=== PATIENT | male | born 1940 | race Hispanic/Latino ===

== ENCOUNTER 2018-04-15 14:52 | Emergency (ER) | payer MEDICARE ==
[~2018-04-15] VITALS: Ht 165.1 cm; Wt 83.9 kg
[2018-04-15] MEDS ORDERED: DIPHTH/TETANUS/ACEL. PERTUSSIS 0.5 ML SYR IM ONE (15:15)
[2018-04-15] MEDS ORDERED: PANTOPRAZOLE SO40 MG PO (15:32)
[2018-04-15] MEDS ORDERED: ASPIR-LOW81 MG PO (15:32)
[2018-04-15] MEDS ORDERED: LISINOPRIL10 MG PO (15:32)
[2018-04-15] MEDS ORDERED: VERAPAMIL ER120 MG PO (15:32)
--- NOTE | 2018-04-15 15:55 | Diagnostic Imaging Report ---
Exam: Left Hand Series. History: Laceration to the left thumb. Comparison: None. Findings: 4 views of the left hand. There is decreased bone mineralization. Dislocation of the first finger at the interphalangeal joint, with dorsal displacement of the distal phalanx. No definite acute, displaced fracture. Moderate degenerative changes in the first carpometacarpal joint. Other joint spaces are relatively preserved. No lytic or blastic lesion. No abnormal soft tissue calcification or mass. No cystic erosive changes.Soft tissue swelling in the first finger. No soft tissue defect is noted. Impression: 1. Dislocation of the first finger and the interphalangeal joint, with dorsal displacement of the distal phalanx. No definite acute displaced fracture. No soft tissue defect is noted. 2. Findings in the first carpometacarpal joint likely reflect osteoarthritis. Signed by: Dr. Deep Barrera M.D. on 04/15/2018 3:52 PM
[2018-04-15] MEDS ORDERED: HYDROCODONE/APAP 5MG-325MG TAB PO ONE (16:00)
--- NOTE | 2018-04-15 16:39 | Diagnostic Imaging Report ---
Exam: Finger, AP and lateral view History: Status post reduction Comparison: Hand films 04/15/2018 Findings: There is decreased bone mineralization. Interval reduction of previously visualized dislocation of the first finger at the interphalangeal joint, with satisfactory alignment. There is an oblique linear lucency at the radial aspect of the base of the distal phalanx, likely representing a nondisplaced fracture. Moderate degenerative changes in the first carpometacarpal joint. No abnormal soft tissue calcification or soft tissue defect. Soft tissue swelling. Impression: 1. Interval reduction of previously visualized dislocation of the first finger and the interphalangeal joint, with satisfactory alignment. 2. Oblique linear lucency at the radial aspect of the base of the distal phalanx likely represents a nondisplaced fracture. Signed by: Dr. Depe Barrera M.D. on 04/15/2018 4:36 PM
== END 2018-04-15 17:16 | disposition home or self-care (01) ==
LOC: FSED 14:52
DX: S61.012A Laceration without foreign body of left thumb without damage to nail, initial encounter (principal); S63.125A Dislocation of interphalangeal joint of left thumb, initial encounter; W18.39XA Other fall on same level, initial encounter; Y92.89 Other specified places as the place of occurrence of the external cause; I10 Essential (primary) hypertension; F17.210 Nicotine dependence, cigarettes, uncomplicated
CPT/HCPCS: 99284

== ENCOUNTER 2019-02-26 14:27 | Emergency (ER) | payer MEDICARE ==
[~2019-02-26] VITALS: Ht 165.1 cm; Wt 77.1 kg
[~2019-02-26 14:27] MED LIST: ASPIR-LOW81 MG PO; LISINOPRIL10 MG PO; PANTOPRAZOLE SO40 MG PO; VERAPAMIL ER120 MG PO
--- OUTSIDE RECORDS SUMMARY | 2019-02-26 14:29 | XMS REPORT ---
Author Author [facility] Address Unknown Phone Unavailable Care Team Providers Care Scrape Gatherer Name Role Phone Jd DA SILVA Unavailable Unavailable Problems This patient has no known problems. Allergies, Adverse Reactions, Alerts This patient has no known allergies or adverse reactions. Medications This patient has no known medications. Results Test Description Test Time Test Comments Text Results Atomic Results Result Comments FINGER LT - HOPD 2018-04-15 16:27:00 [place] [address] Patient Name: ALEXI JOE MR #: [id number] : 1940 Age/Sex: 77/M Req #: [id number] [facility] Physician: Ordered by: SIA DA SILVA MD Report #: [id number] Location: [facility] Room/Bed: Procedure: [id number] HOPD/FINGER LT - HOPD Exam Date: 04/15/18 Exam Time: 1606 REPORT STATUS: Signed Exam: Finger, AP and lateral view History: Status post reduction Comparison: Hand films 04/15/2018 Findings: There is decreased bone mineralization. Interval reduction of previously visualized dislocation of the first finger at the interphalangeal joint, with satisfactory alignment. There is an oblique linear lucency at the radial aspect of the base of the distal phalanx, likely representing a nondisplaced fracture. Moderate degenerative changes in the first carpometacarpal joint. No abnormal soft tissue calcification or soft tissue defect. Soft tissue swelling. Impression: 1. Interval reduction of previously visualized dislocation of the first finger and the interphalangeal joint, with satisfactory alignment. 2. Oblique linear lucency at the radial aspect of the base of the distal phalanx likely represents a nondisplaced fracture. Signed by: Dr. Antonina Barrera M.D. on 04/15/2018 4:36 PM Dictated By: ANTONINA BARRERA MD 35 Transcribed By: JOSE on 04/15/181635 COPY TO: SIA DA SILVA MD HAND 3 VIEW [facility] 2018-04-15 15:49:00 [place] [address] Patient Name: ALEXI JOE MR #: [id number] : 1940 Age/Sex: 77/M Req #: [id number] Adm Physician: Ordered by: SIA DA SILVA MD Report #: [id number] Location: [facility] Room/Bed: Procedure: [id number] HOPD/HAND 3 VIEW - [facility] Exam Date: 04/15/18 Exam Time: 1538 REPORT STATUS: Signed Exam: Left Hand Series. History: Laceration to the left thumb. Comparison: None. Findings: 4 views of the left hand. There is decreased bone mineralization. Dislocation of the first finger at the interphalangeal joint, with dorsal displacement of the distal phalanx. No definite acute, displaced fracture. Moderate degenerative changes in the first carpometacarpal joint. Other joint spaces are relatively preserved. No lytic or blastic lesion. No abnormal soft tissue calcification or mass. No cystic erosive changes.Soft tissue swelling in the first finger. No soft tissue defect is noted. Impression: 1. Dislocation of the first finger and the interphalangeal joint, with dorsal displacement of the distal phalanx. No definite acute displaced fracture. No soft tissue defect is noted. 2. Findings in the first carpometacarpal joint likely reflect osteoarthritis. Signed by: Dr. Antonina Barrera M.D. on 04/15/2018 3:52 PM Dictated By: ANTONINA BARRERA MD 51 Transcribed By: JOSE on 04/15/181551 COPY TO: SIA DA SILVA MD
[2019-02-26] MEDS ORDERED: FAMOTIDINE 20 MG TAB PO ONE (14:45)
[2019-02-26] MEDS ORDERED: ONDANSETRON HCL 4 MG ORAL DISINTEGRATING TAB PO ONE (14:45)
[2019-02-26] MEDS ORDERED: SODIUM CHLORIDE 0.9% 1000ML 1,000 ML IV SCH (14:45)
[2019-02-26] MEDS ORDERED: ONDANSETRON HCL 4 MG ORAL DISINTEGRATING TAB ONE (15:24)
[2019-02-26] MEDS ORDERED: SODIUM CHLORIDE 0.9% 1000ML 1,000 ML ONE (15:25)
[2019-02-26] MEDS ORDERED: FAMOTIDINE 20 MG TAB ONE (15:25)
[2019-02-26] MEDS ORDERED: SODIUM CHLORIDE 0.9% 50ML 50 ML ONE (15:40)
[2019-02-26] MEDS ORDERED: IOPAMIDOL 370 MG/ML 200 ML INFUS..BTL INJ ONE (15:40)
--- NOTE | 2019-02-26 17:24 | Diagnostic Imaging Report ---
EXAM: CT Abdomen and Pelvis WITH contrast INDICATION: ^[id number] ^1550 COMPARISON: None. TECHNIQUE: Abdomen and pelvis were scanned utilizing a multidetector helical scanner from the lung base to the pubic symphysis after administration of IV contrast. Coronal and sagittal reformations were obtained. Routine protocol was performed. Scan was performed when during portal venous phase. IV CONTRAST: 100 mL of Isovue-370 ORAL CONTRAST: Water RADIATION DOSE: Total DLP: 743.7 mGy*cm Estimated effective dose: (DLP x 0.015 x size factor) mSv COMPLICATIONS: None FINDINGS: LINES and TUBES: None. LOWER THORAX: Moderate coronary artery calcifications. HEPATOBILIARY: No focal hepatic lesions. No biliary ductal dilation. GALLBLADDER: Multiple small gallstones. No wall thickening. SPLEEN: No splenomegaly. PANCREAS: 2.0 x 1.7 cm low-attenuation mass within the pancreatic head on series 2, image 32. There is severe atrophy of the pancreatic body and tail with associated diffuse dilatation of the pancreatic duct, measuring up to 0.8 cm in diameter. There is extensive fat stranding surrounding the pancreatic head better seen on series 2, image 37. ADRENALS: No adrenal nodules KIDNEYS/URETERS: Kidneys enhance symmetrically. No hydronephrosis. No cystic or solid mass lesions. No stones. GI TRACT: No abnormal distention, wall thickening, or evidence of bowel obstruction. Extensive diverticulosis throughout the sigmoid colon. Appendectomy. PELVIC ORGANS/BLADDER: Unremarkable. LYMPH NODES: There are few aortocaval (series 2, image 31 and periportal lymph nodes (series 2, image 26, measuring up to 0.8 cm in transverse diameter. VESSELS: Atherosclerotic calcifications of the abdominal aorta and pelvic arteries without aneurysm. PERITONEUM / RETROPERITONEUM: No free air or fluid. There are multiple soft tissue masses/implants throughout the abdomen and pelvis with the largest in the right lower quadrant, underneath the anterior abdominal wall measuring 4.7 x 3.7 cm on series 2, image 53. Additional soft tissue mass is noted in the left upper quadrant, anteriorly on series 2, image 43 measuring 3.5 x 1.9 cm. Additional multiple lymph nodes in the right lower quadrant, for example on series 2 image 56, measuring 2.2 cm. BONES: Moderate multilevel degenerative changes of the lumbar spine. SOFT TISSUES: Small fat-containing left inguinal hernia. IMPRESSION: A 2.0 x 1.7 cm low-attenuation pancreatic head mass with associated diffuse atrophy of the pancreatic body and tail is highly concerning for malignancy. Multiple soft tissue masses throughout the abdomen and pelvis with the largest in the right anterior abdomen, measuring up to 4.7 cm, are indeterminate but may reflect peritoneal implants. Recommend GI consultation and MRI abdomen with and without contrast per pancreatic mass protocol for further evaluation. Extensive diverticulosis throughout the sigmoid colon without diverticulitis. Signed by: Dr. Eloina Reilly M.D. on 02/26/2019 5:21 PM
[2019-02-26 18:17] VITALS: BP 159/91
== END 2019-02-26 18:14 | disposition home or self-care (01) ==
LOC: FSED 14:27
DX: R10.13 Epigastric pain (principal); R10.84 Generalized abdominal pain; R11.0 Nausea; C25.9 Malignant neoplasm of pancreas, unspecified
CPT/HCPCS: 74177; 80048; 80076; 81003; 84484; 85025; 99284; J7030; Q0162; Q9967

== ENCOUNTER 2019-06-24 13:23 | Inpatient (IN) | payer MEDICARE ==
[~2019-06-24] VITALS: Ht 165.1 cm; Wt 72.6 kg
[2019-06-24] MEDS ORDERED: ONDANSETRON HCL INJ 2MG/ML 2ML 2 MG/ML VIAL IV STA (13:48)
[2019-06-24] MEDS ORDERED: SODIUM CHLORIDE 0.9% 1000ML 1,000 ML IV STA (13:56)
[2019-06-24] MEDS ORDERED: MORPHINE SULFATE 5 MG/ML VIAL IV ONE (14:00)
[2019-06-24] MEDS ORDERED: SODIUM CHLORIDE 0.9% 1000ML 1,000 ML ONE (14:02)
[2019-06-24] MEDS ORDERED: ONDANSETRON HCL INJ 2MG/ML 2ML 2 MG/ML VIAL ONE (14:02)
[2019-06-24] MEDS ORDERED: MORPHINE SULFATE INJ 4 MG/ML INJ 1ML ONE (14:02)
[2019-06-24] MEDS ORDERED: MORPHINE SULFATE 2 MG/ML SYR 1ML IV ONE (14:15)
[2019-06-24] MEDS ORDERED: IOPAMIDOL 370 MG/ML 200 ML INFUS..BTL INJ ONE (14:18)
[2019-06-24] MEDS ORDERED: SODIUM CHLORIDE 0.9% 50ML 50 ML ONE (14:19)
--- NOTE | 2019-06-24 15:48 | Diagnostic Imaging Report ---
CT scan of the abdomen and pelvis. Medical history: Pain, pancreatic cancer. Comparison study: February 26, 2019. Technique: Contiguous helical slices were acquired through the abdomen and pelvis post administration of intravenous contrast. No oral contrast was administered. This exam was performed according to our department dose optimization program which includes automated exposure control, adjustment of the mA and/or kV according to the patient's size and/or use of iterative reconstruction technique. Findings: A 6 mm nodule is seen in the right middle lobe on image 1, partially visualized and for which metastatic disease cannot be excluded. Atelectasis or fibrosis is seen in the lung bases. The liver, spleen, adrenal glands and kidneys are unremarkable. Cholelithiasis is seen with distention of the gallbladder measuring 4.2 cm in maximal transverse diameter. No biliary dilatation is seen. The portal vein remains patent measuring 1.5 cm. A 2.2 x 2.3 cm mass is seen in the pancreatic head, similar to previous. There are atrophic changes in the tail with significant dilatation of the duct measuring up to 7 mm. The mass invades the superior mesenteric vein with near complete occlusion. The portal venous confluence appears invaded. The lesion abuts the superior mesenteric artery with no clear invasion. There are multiple dilated small bowel loops measuring up to 4.0 cm consistent with a small bowel obstruction. A transition is seen in the mid small bowel slightly eccentric to the right side. The small bowel distal to this region is decompressed. Stool and gas remaining in the colon. Extensive diverticulosis is seen without evidence of diverticulitis. Mild ascites is seen, more pronounced on previous. As on previous, there is evidence of omental taking with multiple large omental masses identified measuring up to 7.2 x 1.5 cm in maximal transverse diameter. This nodule is slightly less pronounced on previous. However, other omental sites extending to the mesentery are more prominent including a 5.7 x 2.3 cm focus which was not previously present. There is no free fluid or free air. The aorta is normal in caliber. Atherosclerosis is identified. A duodenal diverticulum is noted. Bone windows demonstrate degenerative changes. Impression: 1. Pancreatic adenocarcinoma, as on previous. It invades several adjacent structures. 2. Omental take as well as mesenteric lesions, some areas appear more pronounced whereas others are less pronounced. 3. Small bowel obstruction with a transition in the mid small bowel to the right of midline. Obstruction from a mesenteric implant cannot be excluded. 4. Diverticulosis. 5. Cholelithiasis. 6. Tiny nodule in the right middle lobe, partially visualized and for which metastatic disease cannot be excluded. Signed by: Brcok Sandhu MD on 06/24/2019 3:45 PM
--- NOTE | 2019-06-24 16:35 | NUR ---
Called [facility] for transport to room 203
--- NOTE | 2019-06-24 16:52 | NUR ---
Report called to CLEMENTINA Nolasco
--- NOTE | 2019-06-24 18:02 | NUR ---
PT ARRIVED TO ROOM 203 WITH EMS VIA STRETCHER; PT AWAKE, ALERT, NO SIGNS OF DISTRESS, IV PATENT, INTACT, NG TUBE IN PLACE. PT HAS NO COMPLAINTS AT THIS TIME.
[2019-06-24] MEDS: SODIUM CHLORIDE 0.9% 1000ML 1,000 ML IV SCH (18:31)
--- NOTE | 2019-06-24 19:15 | NUR ---
BEDSIDE SHIFT REPORT GIVEN TO ELEMENTARY SUPERVISOR RN; PT'S NG TUBE PATENT, INTACT. PT AWAKE, ALERT, NO SIGNS OF DISTRESS.
[2019-06-24 20:00] VITALS: BP 139/79
--- NOTE | 2019-06-24 20:50 | NUR ---
SPOKE TO DR VIVAR ABOUT CONSULT, NG TUBE AND PT C/O ABDOMINAL PAIN. NEW ORDER RECEIVED
[2019-06-24] MEDS ORDERED: MORPHINE SULFATE 2 MG/ML SYR 1ML IV PRN (21:00)
[2019-06-24 21:19] VITALS: BP 134/75
[2019-06-24] MEDS: ONDANSETRON HCL INJ 2MG/ML 2ML 2 MG/ML VIAL IV PRN (21:42)
[2019-06-24 22:19] VITALS: BP 134/75
[2019-06-24 22:41] VITALS: BP 134/75
[2019-06-24] MEDS ORDERED: PANTOPRAZOLE SO40 MG PO (22:52)
[2019-06-24] MEDS ORDERED: SUCRALFATE1 GM PO (22:53)
[2019-06-24] MEDS ORDERED: AMITRIPTYLINE H10 MG PO (22:53)
[2019-06-25] VITALS (7 sets, daily range): BP systolic 115–144; BP diastolic 63–78
--- NOTE | 2019-06-25 02:22 | NUR ---
H&P cc: abdominal pain HPI: 78yoM, PCP , Onc , developed abdominal pain and N/V. Last BM this am, normal. PMH: Metastatic pancreatic adenocarcinoma dx Fall 2018 s/p chemo ongoing, HTN, GERD, Mood d/o, hx cigarettes PShx: appendectomy, back, face, hand Allergies; see emr FH/Sh; ; quit cig in Apr 2019 Meds; see MAR ROS: no f/c/s/SHELTON/cp/confusion/focal limb weakness/dizziness/vision changes v/s revd PE tired appearing NGT in place; facial asymmetry ns1s2 mod bs soft; mild tender in mid abdomen no e/t skin dry flat affect a&ox3; garvin labs/med revd A/P: 78yoM Pancreastic adenocarcinoma SBO Diverticulosis Cholelithiasis Right lung nodule GERD HTN FOrmer smoker PLAN IVF; NPO; antiemetics; NGT; Sx consult; GI eval; IV ppi and SCD; Joe Cardona MD, PhD.
[2019-06-25] MEDS ORDERED: METOPROLOL TARTRATE INJ 1 MG/ML VIAL IV PRN (02:30)
[2019-06-25] MEDS: SODIUM CHLORIDE 0.9% 1000ML 1,000 ML IV SCH ×3 (03:00→16:16)
--- NOTE | 2019-06-25 03:15 | NUR ---
SPOKE TO DR PETE ABOUT CONSULT
[2019-06-25 05:31] LABS: BASOPHILS % 0.3 % (0.0-1.0); HEMATOCRIT 33.2 % (38.2-49.6); HEMOGLOBIN 11.2 g/dL (14.0-18.0); LYMPHOCYTES # (AUTO) 0.6 (1.0-3.2); LYMPHOCYTES % 14.5 % (18.0-39.1); MEAN CORPUSCULAR HEMOGLOBIN 31.5 pg (28-32); MEAN CORPUSCULAR HGB CONC 33.7 g/dL (31-35); MEAN CORPUSCULAR VOLUME 93.5 fL (81-99); MONOCYTES # (AUTO) 0.4 (0.2-0.8); MONOCYTES % 11.6 % (4.4-11.3); NEUTROPHILS # (AUTO) 2.8 (2.1-6.9); NEUTROPHILS % 73.3 % (38.7-80.0); PLATELET COUNT 211 x10e3/uL (140-360); RED BLOOD COUNT 3.55 x10e6/uL (4.3-5.7); RED CELL DISTRIBUTION WIDTH 14.6 % (11.7-14.4)
[2019-06-25 06:02] LABS: ANION GAP 16.5 mmol/L (8-16); BLOOD UREA NITROGEN 16 mg/dL (7-26); BUN/CREATININE RATIO 22 (6-25); CALCIUM 8.2 mg/dL (8.4-10.2); CARBON DIOXIDE 20 mmol/L (22-29); CHLORIDE 103 mmol/L (98-107); CREATININE, SERUM 0.72 mg/dL (0.72-1.25); EST GLOMERULAR FILTRATION RATE > 60 ML/MIN (60-); GLUCOSE 109 mg/dL (74-118); POTASSIUM 3.5 mmol/L (3.5-5.1); SODIUM 136 mmol/L (136-145)
[2019-06-25] MEDS: ONDANSETRON HCL INJ 2MG/ML 2ML 2 MG/ML VIAL IV PRN (06:04)
--- NOTE | 2019-06-25 06:15 | NUR ---
PLACED CALL TO DR LEVI FOR CONSULT. SPOKE TO
--- NOTE | 2019-06-25 07:00 | NUR ---
BEDSIDE SHIFT REPORT RECEIVED FROM THE FINISH MIXER RN. EDUCATED PT ABOUT FALL PRECAUTIONS. CALL LIGHT WITH IN EASY REACH. INSTRUCTED PT TO USE CALL LIGHT FOR ALL THE NEEDS. PT VERBALIZED UNDERSTANDING. DAUGHTER AT BEDSIDE. BED IS LOW AND LOCKED. SIDE RAILS X2. PT DENIES NEEDS AT THIS TIME.
[2019-06-25] MEDS: FAMOTIDINE 20 MG/2 ML VIAL IV SCH ×2 (09:28→16:16)
--- NOTE | 2019-06-25 11:30 | NUR ---
PT IS NON COMPLAINT WITH FALL PRECAUTIONS.
--- NOTE | 2019-06-25 12:49 | Diagnostic Imaging Report ---
Exam:Abdominal radiograph History:Small bowel obstruction Comparison: None available Findings: Dilated loops of small bowel measuring up to 4.5 cm. No visualized free air. Contrast within the bladder. Impression: Persistent small bowel obstruction Signed by: Dr. Jagdish Gabriel M.D. on 06/25/2019 12:47 PM
--- NOTE | 2019-06-25 17:39 | Consultation ---
DATE OF CONSULTATION: 06/25/2019 CHIEF COMPLAINT: Vomiting. HISTORY OF PRESENT ILLNESS: The patient is a 78-year-old male with known history of advanced pancreatic cancer, undergoing chemotherapy. He complains of 1-week history of intolerance of oral intake with repeated nausea and vomiting, and some abdominal discomfort. No fever or diarrhea. Last bowel movement was yesterday. PAST MEDICAL HISTORY: Significant for hypertension, coronary artery disease, and gastroesophageal reflux disease. PAST SURGICAL HISTORY: Positive for gastric surgery and appendectomy. ALLERGIES: TO PENICILLIN. SOCIAL HABITS: He denies smoking or alcohol use. REVIEW OF SYSTEMS: No chest pain, shortness of breath, or cough. PHYSICAL EXAMINATION: VITAL SIGNS: Stable. He is afebrile. He is awake, alert, and mild discomfort. HEENT: Sclerae nonicteric. NECK: Supple. LUNGS: Clear. HEART: Regular rate and rhythm. ABDOMEN: Soft. No guarding. No focal tenderness or rebound. EXTREMITIES: No cyanosis or edema. LABORATORY DATA: The patient white cell count is 4, hemoglobin of 11, creatinine 0.7. Lipase is less than 4. CT of the abdomen show evidence of intestinal obstruction with transition in the mid small bowel. ASSESSMENT: Intestinal obstruction in patient with advanced pancreatic carcinoma with omental implants, possibly resulting in obstruction. Planned NG tube to wall suction. Serial abdominal exam and x-ray. The patient may need intestinal bypass if obstruction persists. Anam Rincon MD DNIke/MODL /[id number]
--- NOTE | 2019-06-25 19:00 | NUR ---
BEDSIDE SHIFT REPORT GIVEN TO THE EP SPECIALIST RN. PT DENIED FURTHER NEEDS.
[2019-06-26] VITALS (10 sets, daily range): BP systolic 128–154; BP diastolic 65–84
[2019-06-26] MEDS: SODIUM CHLORIDE 0.9% 1000ML 1,000 ML IV SCH ×3 (02:00→17:16)
--- NOTE | 2019-06-26 08:00 | NUR ---
IM- progress note O/N see below ROS: no f/c/s/SHELTON/cp/confusion/focal limb weakness/dizziness/vision changes v/s revd PE tired appearing NGT in place; facial asymmetry ns1s2 mod bs soft; mild tender in mid abdomen no e/t skin dry flat affect a&ox3; garvin labs/med revd A/P: 78yoM Stage 4 Pancreatic adenocarcinoma with peritoneal implants SBO Diverticulosis Cholelithiasis Right lung nodule GERD HTN FOrmer smoker PLAN IVF; NPO; antiemetics; NGT; Sx consult; GI eval; IV ppi and SCD; 2/2 check labs; f/u XR this am. Joe Cardona MD, PhD.
--- NOTE | 2019-06-26 08:03 | Diagnostic Imaging Report ---
EXAM: Abdomen Radiograph 1 View(s) INDICATION: ^bowel obstruction ^[id number] ^0630 ^Y COMPARISON: CT abdomen pelvis dated 06/24/2019 FINDINGS: No abnormalities in the lower chest. There is NG tube in place with distal tip in stomach and sidehole at the level of GE junction. Normal volume of stool in the colon. No dilated loops of small bowel. No abnormal abdominal calcifications.. No abnormal soft tissue masses. No pneumoperitoneum. No acute osseous abnormality. Marked degenerative changes seen in the spine. IMPRESSION: No radiographic evidence of obstruction. There is NG tube in place with distal tip in stomach and sidehole at the level of GE junction. Recommend 5 cm advancement. Signed by: Rubin Leos MD on 06/26/2019 8:01 AM
[2019-06-26] MEDS: FAMOTIDINE 20 MG/2 ML VIAL IV SCH ×2 (08:51→17:16)
[2019-06-26 09:18] LABS: BASOPHILS % 0.4 % (0.0-1.0); EOSINOPHILS # (AUTO) 0.1 (0.0-0.4); EOSINOPHILS % 1.6 % (0.0-6.0); HEMATOCRIT 30.6 % (38.2-49.6); LYMPHOCYTES # (AUTO) 1.2 (1.0-3.2); LYMPHOCYTES % 23.4 % (18.0-39.1); MEAN CORPUSCULAR HEMOGLOBIN 31.3 pg (28-32); MEAN CORPUSCULAR HGB CONC 32.7 g/dL (31-35); MEAN CORPUSCULAR VOLUME 95.6 fL (81-99); MONOCYTES # (AUTO) 0.8 (0.2-0.8); MONOCYTES % 16.3 % (4.4-11.3); NEUTROPHILS # (AUTO) 2.9 (2.1-6.9); NEUTROPHILS % 58.1 % (38.7-80.0); PLATELET COUNT 208 x10e3/uL (140-360); RED CELL DISTRIBUTION WIDTH 14.7 % (11.7-14.4)
[2019-06-26 09:39] LABS: ANION GAP 16.5 mmol/L (8-16); BLOOD UREA NITROGEN 15 mg/dL (7-26); BUN/CREATININE RATIO 22 (6-25); CALCIUM 7.9 mg/dL (8.4-10.2); CARBON DIOXIDE 19 mmol/L (22-29); CHLORIDE 105 mmol/L (98-107); CREATININE, SERUM 0.68 mg/dL (0.72-1.25); EST GLOMERULAR FILTRATION RATE > 60 ML/MIN (60-); GLUCOSE 72 mg/dL (74-118); POTASSIUM 3.5 mmol/L (3.5-5.1); SODIUM 137 mmol/L (136-145)
[2019-06-26 10:02] LABS: MAGNESIUM 1.6 MG/DL (1.3-2.1); PHOSPHORUS 2.2 MG/DL (2.3-4.7)
[2019-06-26 16:19] LABS: BAND NEUTROPHILS % (MANUAL) 7 %; EOSINOPHILS % (MANUAL) 2 % (0-7); LYMPHOCYTES % (MANUAL) 30 % (19-48); MONOCYTES % (MANUAL) 11 % (3.4-9.0); NEUTROPHILS % (MANUAL) 48 % (40-74); PLATELET ESTIMATE ADEQUATE; PLATELET MORPHOLOGY COMMENT NORMAL; RBC MORPHOLOGY COMMENT NORMAL
--- NOTE | 2019-06-26 20:24 | Progress Note ---
DATE: 06/26/2019 Hematology Oncology Progress Note This is coverage for Dr. Micaela Figueroa. SUBJECTIVE: Mr. Grover was seen and examined at bedside. The patient had his NG tube taken out. He ate clear liquid diet and he tolerated. He walked around the room without difficulty. He feels much better. He says his abdomen is softer. REVIEW OF SYSTEMS: No headaches, no bleeding. OBJECTIVE: VITAL SIGNS: Afebrile, vital signs noted per the chart record. GENERAL: In no acute distress. Alert and calm. HEENT: Normocephalic and atraumatic. NECK: Supple. Throat midline. LUNGS: Bilateral air entry, rare rhonchi. CARDIOVASCULAR: S1, S2. No murmurs, rubs, or gallops. ABDOMEN: Soft and nontender. EXTREMITIES: No clubbing. No cyanosis. There is no edema. INTEGUMENT: No rash. No purpura. LABORATORY DATA: BUN 15, creatinine 0.7. White count 5, hematocrit 31 . IMPRESSION AND PLAN: 1. Stage IV pancreatic adenocarcinoma, peritoneal metastases. 2. Admit with small-bowel obstruction, partial. 3. Diverticulosis. 4. Cholelithiasis. 5. Right lung nodule. 6. Gastroesophageal reflux disease. 7. Hypertension. 8. Former smoker. 9. Mild anemia. The patient continues to have up-regulation his diet by surgeon. Diet explanation today. If the patient is discharged tomorrow, he is tentatively planned for chemotherapy tomorrow, Dr. Figueroa. We will follow up his clinical progress. MD ALAINA Erwin/AIRAM /[id number]
[2019-06-27 00:14] VITALS: BP 138/76
[2019-06-27] MEDS: SODIUM CHLORIDE 0.9% 1000ML 1,000 ML IV SCH ×2 (00:14→08:14)
[2019-06-27 04:35] VITALS: BP 132/76
--- NOTE | 2019-06-27 06:32 | NUR ---
D/C summary Principal Dx: Stage 4 Pancreatic adenocarcinoma with peritoneal implants SBO secondary Dx: Diverticulosis Cholelithiasis Right lung nodule GERD HTN FOrmer smoker PLAN IVF; NPO; antiemetics; NGT; Sx consult; GI eval; IV ppi and SCD; 2/2 check labs; f/u XR this am. 2-3 XR shows improvement; diet per surgery; check lytes; Better; d/c home d/c home f/u pcp 1 week stable d/c>35mins Joe Cardona MD, PhD.
[2019-06-27 07:43] LABS: ANION GAP 13.6 mmol/L (8-16); BLOOD UREA NITROGEN 10 mg/dL (7-26); BUN/CREATININE RATIO 17 (6-25); CALCIUM 8.1 mg/dL (8.4-10.2); CARBON DIOXIDE 22 mmol/L (22-29); CHLORIDE 100 mmol/L (98-107); EST GLOMERULAR FILTRATION RATE > 60 ML/MIN (60-); GLUCOSE 87 mg/dL (74-118); POTASSIUM 3.6 mmol/L (3.5-5.1); SODIUM 132 mmol/L (136-145)
[2019-06-27 07:45] LABS: MAGNESIUM 1.5 MG/DL (1.3-2.1); PHOSPHORUS 2.1 MG/DL (2.3-4.7)
[2019-06-27 07:58] VITALS: BP 137/80
[2019-06-27] MEDS ORDERED: COLACE100 MG PO (08:11)
[2019-06-27] MEDS ORDERED: SENNA LAXATIVE8.6 MG (08:11)
[2019-06-27 08:25] VITALS: BP 137/80
[2019-06-27] MEDS: FAMOTIDINE 20 MG/2 ML VIAL IV SCH (08:30)
== END 2019-06-27 08:35 | disposition home or self-care (01) | DRG 375 ==
LOC: FSED 13:23 → ERHOLD 16:17 → MED/SURG2 18:10
PROVIDERS: ADMIT Internal Medicine; ATTEND Internal Medicine
DX: C78.6 Secondary malignant neoplasm of retroperitoneum and peritoneum (principal); C25.9 Malignant neoplasm of pancreas, unspecified; K56.690 Other partial intestinal obstruction; K57.90 Diverticulosis of intestine, part unspecified, without perforation or abscess without bleeding; R91.1 Solitary pulmonary nodule; K80.20 Calculus of gallbladder without cholecystitis without obstruction; I10 Essential (primary) hypertension; Z87.891 Personal history of nicotine dependence; K21.9 Gastro-esophageal reflux disease without esophagitis; I25.10 Atherosclerotic heart disease of native coronary artery without angina pectoris
CPT/HCPCS: 36415; 74018; 74177; 80048; 80076; 81003; 83690; 83735; 84100; 85025; 96374; 96375; 99284; J2270; J2405; J7030; Q9967

== ENCOUNTER 2019-07-03 11:12 | Inpatient (IN) | payer MEDICARE ==
[~2019-07-03] VITALS: Ht 153.7 cm; Wt 79.4 kg
[~2019-07-03 11:12] MED LIST changes: +AMITRIPTYLINE H10 MG PO; +COLACE100 MG PO; +SENNA LAXATIVE8.6 MG; +SUCRALFATE1 GM PO
[2019-07-03] MEDS ORDERED: SODIUM CHLORIDE 0.9% 1000ML 1,000 ML IV STA (11:37)
[2019-07-03] MEDS ORDERED: ONDANSETRON HCL INJ 2MG/ML 2ML 2 MG/ML VIAL IV NR (11:45)
[2019-07-03 12:32] LABS: BASOPHILS # (AUTO) 0.1 (0.0-0.1); BASOPHILS % 0.4 % (0.0-1.0); EOSINOPHILS % 0.3 % (0.0-6.0); HEMATOCRIT 42.4 % (38.2-49.6); HEMOGLOBIN 14.6 g/dL (14.0-18.0); LYMPHOCYTES # (AUTO) 1.9 (1.0-3.2); LYMPHOCYTES % 15.1 % (18.0-39.1); MEAN CORPUSCULAR HEMOGLOBIN 31.4 pg (28-32); MEAN CORPUSCULAR HGB CONC 34.4 g/dL (31-35); MEAN CORPUSCULAR VOLUME 91.2 fL (81-99); MONOCYTES # (AUTO) 1.1 (0.2-0.8); MONOCYTES % 8.8 % (4.4-11.3); NEUTROPHILS # (AUTO) 9.5 (2.1-6.9); NEUTROPHILS % 74.9 % (38.7-80.0); PLATELET COUNT 626 x10e3/uL (140-360); RED BLOOD COUNT 4.65 x10e6/uL (4.3-5.7); RED CELL DISTRIBUTION WIDTH 14.9 % (11.7-14.4)
[2019-07-03 12:49] LABS: ALANINE AMINOTRANSFERASE 13 IU/L (0-55); ALBUMIN 3.5 g/dL (3.5-5.0); ALBUMIN/GLOBULIN RATIO 0.9 (0.8-2.0); ALKALINE PHOSPHATASE 96 IU/L (40-150); ANION GAP 17.7 mmol/L (8-16); BLOOD UREA NITROGEN 14 mg/dL (7-26); BUN/CREATININE RATIO 15 (6-25); CALCIUM 9.4 mg/dL (8.4-10.2); CARBON DIOXIDE 27 mmol/L (22-29); CHLORIDE 94 mmol/L (98-107); CREATINE KINASE 33 IU/L (30-200); CREATININE, SERUM 0.95 mg/dL (0.72-1.25); EST GLOMERULAR FILTRATION RATE > 60 ML/MIN (60-); GLUCOSE 115 mg/dL (74-118); POTASSIUM 3.7 mmol/L (3.5-5.1); SODIUM 135 mmol/L (136-145)
[2019-07-03 12:56] LABS: LIPASE < 4 U/L (8-78)
--- NOTE | 2019-07-03 13:06 | Diagnostic Imaging Report ---
Exam: KUB - 2 views Clinical History: Query small bowel obstruction. Comparison: KUB 06/26/2019. CT abdomen/pelvis 06/24/2019. Findings: Interval removal of enteric tube. Dilated small bowel loop in the upper abdomen, measuring up to 5.2 cm. There are multiple air-fluid levels on upright view. Some air is seen throughout the colon and rectum, which is not distended. No evidence of free intraperitoneal air. No acute osseous abnormality. Cholelithiasis. Impression: Findings of partial small bowel obstruction. Signed by: Dr. Mehrdad Marin MD on 07/03/2019 1:04 PM
--- NOTE | 2019-07-03 13:20 | NUR ---
PATIENT TO ROOM 9
--- NOTE | 2019-07-03 14:12 | NUR ---
H&P cc: abdominal pain HPI: 78yoM, PCP , Onc , developed abdominal pain and N/V. Recently d/c after SBO that spontaneously resolved with conservative tx. PMH: Metastatic pancreatic adenocarcinoma dx Fall 2018 s/p chemo ongoing, HTN, GERD, Mood d/o, hx cigarettes, SBO 06/2019 PShx: appendectomy, back, face, hand Allergies; see emr FH/Sh; ; quit cig in Apr 2019 Meds; see MAR ROS: no f/c/s/SHELTON/cp/confusion/focal limb weakness/dizziness/vision changes v/s revd PE tired appearing facial asymmetry ns1s2 mod bs soft; mild tender in mid abdomen no e/t skin dry flat affect a&ox3; garvin labs/med revd A/P: 78yoM SBO Pancreastic adenocarcinoma Diverticulosis Cholelithiasis Right lung nodule GERD HTN FOrmer smoker PLAN Place NGT; IVF; NPO; antiemetics; NGT; Sx consult; GI eval; IV ppi and SCD; Joe Cardona MD, PhD.
--- NOTE | 2019-07-03 14:53 | NUR ---
SITE ADMINISTRATOR AT BEDSIDE
--- NOTE | 2019-07-03 15:15 | NUR ---
PATIENT HAD LARGE AMOUNT PROJECTILE VOMITING X 1 ALL OVER FLOOR
[2019-07-03] MEDS: SODIUM CHLORIDE 0.9% 250ML IRRIG IR SCH ×3 (15:21→22:30)
[2019-07-03] MEDS: ONDANSETRON HCL INJ 2MG/ML 2ML 2 MG/ML VIAL IV PRN (19:15)
[2019-07-03] MEDS ORDERED: D5.45%NS/KCL 20MEQ 1,000 ML IV ONE (19:15)
--- NOTE | 2019-07-03 19:15 | NUR ---
REPORT TO Mira MARSH R.N., SHE WILL TRANSPORT PATIENT TO ROOM
[2019-07-03] MEDS ORDERED: MORPHINE SULFATE INJ 4 MG/ML INJ 1ML IV PRN (19:45)
[2019-07-03] MEDS ORDERED: PROMETHAZINE HCL (IM) 25 MG/ML VIAL ONE (20:14)
[2019-07-03] MEDS: PROMETHAZINE 12.5MG/ NACL 0.9% 12.5 MG/50 ML BAG IV PRN (20:25)
[2019-07-03] MEDS: METOPROLOL TARTRATE INJ 1 MG/ML VIAL IV PRN (20:28)
--- NOTE | 2019-07-03 21:00 | NUR ---
Received patient from ER nurse, patient is stable at this time. safety and fall precautions maintained as per hospital protocol: bed in lowest position and locked, needed items beside bed and patient instructed to call at all times for help.
[2019-07-03 21:45] VITALS: BP 129/89
[2019-07-04] VITALS (7 sets, daily range): BP systolic 123–132; BP diastolic 72–85
[2019-07-04] MEDS: SODIUM CHLORIDE 0.9% 250ML IRRIG IR SCH ×7 (02:30→20:44)
--- NOTE | 2019-07-04 07:00 | NUR ---
BEDSIDE SHIFT REPORT RECEIVED PT IN STABLE CONDITION, IVF INFUSING TO L AC 20G NO SS OF INFILTRATION NOTED, UPDATED ON POC VOICED UNDERSTANDING, CALL LIGHT INR EACH WILL CONTINUE TO MONITOR
--- NOTE | 2019-07-04 07:17 | NUR ---
IM- progress note O/N no evens ROS: no f/c/s/SHELTON/cp/confusion/focal limb weakness/dizziness/vision changes v/s revd PE tired appearing facial asymmetry ns1s2 mod bs soft; mild tender in mid abdomen no e/t skin dry flat affect a&ox3; garvin labs/med revd A/P: 78yoM SBO Pancreastic adenocarcinoma Diverticulosis Cholelithiasis Right lung nodule GERD HTN FOrmer smoker PLAN Place NGT; IVF; NPO; antiemetics; NGT; Sx consult; GI eval; IV ppi and SCD; 07/04 ambulate; sx eval; check dionicio Cardona MD, PhD.
--- NOTE | 2019-07-04 07:24 | NUR ---
Patient endorsed to next shift for continuity of care.
[2019-07-04] MEDS ORDERED: DEXTROSE 5%/0.45% SOD CHL 1,000 ML IV ONE (07:30)
[2019-07-04 07:48] LABS: BASOPHILS % 0.2 % (0.0-1.0); HEMATOCRIT 35.7 % (38.2-49.6); LYMPHOCYTES # (AUTO) 1.7 (1.0-3.2); LYMPHOCYTES % 6.3 % (18.0-39.1); MEAN CORPUSCULAR HEMOGLOBIN 31.5 pg (28-32); MEAN CORPUSCULAR HGB CONC 33.6 g/dL (31-35); MEAN CORPUSCULAR VOLUME 93.7 fL (81-99); MONOCYTES # (AUTO) 1.2 (0.2-0.8); MONOCYTES % 4.4 % (4.4-11.3); NEUTROPHILS # (AUTO) 23.5 (2.1-6.9); NEUTROPHILS % 88.3 % (38.7-80.0); PLATELET COUNT 532 x10e3/uL (140-360); RED BLOOD COUNT 3.81 x10e6/uL (4.3-5.7); RED CELL DISTRIBUTION WIDTH 15.1 % (11.7-14.4)
[2019-07-04 08:08] LABS: ANION GAP 14.4 mmol/L (8-16); BLOOD UREA NITROGEN 20 mg/dL (7-26); BUN/CREATININE RATIO 21 (6-25); CALCIUM 8.4 mg/dL (8.4-10.2); CARBON DIOXIDE 29 mmol/L (22-29); CHLORIDE 97 mmol/L (98-107); CREATININE, SERUM 0.95 mg/dL (0.72-1.25); EST GLOMERULAR FILTRATION RATE > 60 ML/MIN (60-); GLUCOSE 131 mg/dL (74-118); POTASSIUM 4.4 mmol/L (3.5-5.1); SODIUM 136 mmol/L (136-145)
[2019-07-04 08:27] LABS: PHOSPHORUS 4.1 MG/DL (2.3-4.7)
[2019-07-04 08:44] LABS: LYMPHOCYTES % (MANUAL) 7 % (19-48); MONOCYTES % (MANUAL) 1 % (3.4-9.0); NEUTROPHILS % (MANUAL) 92 % (40-74); NUCLEATED RED BLOOD CELLS 1; PLATELET ESTIMATE MODERATELY INCREASED; PLATELET MORPHOLOGY COMMENT NORMAL; RBC MORPHOLOGY COMMENT NORMAL
[2019-07-04] MEDS ORDERED: PANTOPRAZOLE 40 MG 10ML VIAL IV SCH (09:00)
--- NOTE | 2019-07-04 10:57 | Diagnostic Imaging Report ---
Exam: KUB Comparison: July 03, 2019 Clinical history: Bowel obstruction Findings: There is interval insertion of a nasogastric tube with its tip overlying the gastric fundus. Moderately prominent small bowel loops are again noted in the upper abdomen measuring up to 4.5 cm in diameter. Bowel gas is noted in the rectum. There is no evidence of pneumoperitoneum or pathological calcifications. Degenerative changes are noted throughout the lumbar spine with bridging osteophytes. Impression: 1. Moderately dilated small bowel loops which may represent ileus versus partial small bowel obstruction. Signed by: Dr. Jase Vaughan MD on 07/04/2019 10:55 AM
--- NOTE | 2019-07-04 11:03 | NUR ---
SOAP SUDS ENEMA GIVEN PER ORDERED PT TOLERATED 800CC OF FLUID. WILL CONTINUE TO MONITOR
--- NOTE | 2019-07-04 13:30 | NUR ---
RECEIVED PT FROM 108 TO 186. PT AAOX3, NO C/O PAIN, NGT TO LIS PLACEMENT CONFIRMED. IV SITE LEAKING, NEW IV PLACE IN LT HAND 20G. IVF STARTED. PT REMAINS NPO.
[2019-07-04] MEDS ORDERED: AZTREONAM 1 GM/NS 50 ML 50 ML IV SCH (14:00)
[2019-07-04] MEDS ORDERED: METRONIDAZOLE 500MG/NS 100ML 100 ML IV SCH (14:00)
[2019-07-04] MEDS: DEXTROSE 5%/0.45% SOD CHL 1,000 ML IV SCH (14:30)
--- NOTE | 2019-07-04 14:55 | NUR ---
PT WORK WITH PATIENT AND HE WALKED 150FT. PT RECOMMENDS HOME WITH HH AND ROLLING WALKER WITH ASSIST
[2019-07-04] MEDS: METRONIDAZOLE 500MG/NS 100ML 100 ML IV SCH ×2 (15:49→21:10)
[2019-07-04] MEDS: AZTREONAM (AZACTAM) 0.5 GM in SODIUM CHLORIDE 0.9% 50ML 50 ML IV SCH (17:00)
--- NOTE | 2019-07-04 18:55 | NUR ---
SPOKE WITH FAMILY EARLIER. NO CHANGES AT THIS TIME. REPORT GIVEN TO ONCOMING SHIFT.
--- NOTE | 2019-07-04 19:25 | NUR ---
Received patient awake, left nare NGT to low cont suction, no complaints of pain at this time, call light within easy reach, advised to call anytime when needed help. Will continue to monitor closely
[2019-07-05] VITALS (8 sets, daily range): BP systolic 135–151; BP diastolic 80–91
[2019-07-05] MEDS: AZTREONAM (AZACTAM) 0.5 GM in SODIUM CHLORIDE 0.9% 50ML 50 ML IV SCH ×3 (00:39→16:58)
[2019-07-05] MEDS: SODIUM CHLORIDE 0.9% 250ML IRRIG IR SCH ×6 (00:43→21:50)
[2019-07-05] MEDS: METRONIDAZOLE 500MG/NS 100ML 100 ML IV SCH ×3 (05:37→21:50)
--- NOTE | 2019-07-05 05:52 | NUR ---
IM- progress note O/N no evens ROS: no f/c/s/SHELTON/cp/confusion/focal limb weakness/dizziness/vision changes v/s revd PE tired appearing facial asymmetry ns1s2 mod bs soft; mild tender in mid abdomen no e/t skin dry flat affect a&ox3; garvin labs/med revd A/P: 78yoM SBO Pancreastic adenocarcinoma Diverticulosis Cholelithiasis Right lung nodule GERD HTN FOrmer smoker PLAN Place NGT; IVF; NPO; antiemetics; NGT; Sx consult; GI eval; IV ppi and SCD; 07/04 ambulate; sx eval; check lytes 07/05 check labs Joe Cardona MD, PhD.
--- NOTE | 2019-07-05 07:00 | NUR ---
walking rounds done, patient is in good condition, call light within easy reach
[2019-07-05 08:00] LABS: BASOPHILS % 0.2 % (0.0-1.0); EOSINOPHILS # (AUTO) 0.1 (0.0-0.4); EOSINOPHILS % 0.4 % (0.0-6.0); HEMATOCRIT 34.5 % (38.2-49.6); HEMOGLOBIN 11.5 g/dL (14.0-18.0); LYMPHOCYTES # (AUTO) 1.4 (1.0-3.2); LYMPHOCYTES % 8.6 % (18.0-39.1); MEAN CORPUSCULAR HEMOGLOBIN 31.7 pg (28-32); MEAN CORPUSCULAR HGB CONC 33.3 g/dL (31-35); MONOCYTES % 5.9 % (4.4-11.3); NEUTROPHILS # (AUTO) 13.5 (2.1-6.9); NEUTROPHILS % 84.3 % (38.7-80.0); PLATELET COUNT 471 x10e3/uL (140-360); RED BLOOD COUNT 3.63 x10e6/uL (4.3-5.7); RED CELL DISTRIBUTION WIDTH 14.8 % (11.7-14.4)
[2019-07-05 08:23] LABS: ANION GAP 14.2 mmol/L (8-16); BLOOD UREA NITROGEN 21 mg/dL (7-26); BUN/CREATININE RATIO 26 (6-25); CALCIUM 8.3 mg/dL (8.4-10.2); CARBON DIOXIDE 28 mmol/L (22-29); CHLORIDE 98 mmol/L (98-107); EST GLOMERULAR FILTRATION RATE > 60 ML/MIN (60-); GLUCOSE 107 mg/dL (74-118); POTASSIUM 4.2 mmol/L (3.5-5.1); SODIUM 136 mmol/L (136-145)
[2019-07-05 08:41] LABS: PHOSPHORUS 3.2 MG/DL (2.3-4.7)
[2019-07-05] MEDS: DEXTROSE 5%/0.45% SOD CHL 1,000 ML IV SCH (14:13)
--- NOTE | 2019-07-05 16:27 | Consultation ---
DATE OF CONSULTATION: 07/05/2019 CHIEF COMPLAINT: Intractable vomiting. HISTORY OF PRESENT ILLNESS: The patient is a 78-year-old male, well known to me from recent hospitalization for small-bowel obstruction. The patient has known advanced pancreatic cancer, who is undergoing chemotherapy. He was recently discharged from the hospital after a bout of small-bowel obstruction, which resolved without surgery. The patient again complained of abdominal cramping with vomiting. He denies hematemesis, fever, or chills. No bowel movement for last several days. PAST MEDICAL HISTORY: Significant for inoperable advanced pancreatic carcinoma, hypertension, coronary artery disease. PAST SURGICAL HISTORY: Positive for appendectomy and gastric procedures. ALLERGIES: THE PATIENT IS ALLERGIC TO PENICILLIN. SOCIAL HABITS: No history of smoking or alcohol abuse. REVIEW OF SYSTEMS: He denies chest pain or shortness of breath, or cough. PHYSICAL EXAMINATION: VITAL SIGNS: Stable. He is afebrile. He is awake, alert, in mild discomfort. HEENT: Sclerae nonicteric. NECK: Supple. LUNGS: Clear. HEART: Regular rate and rhythm. ABDOMEN: Soft and nontender. EXTREMITIES: No cyanosis or edema. LABORATORY DATA: White cell count is 16 with hemoglobin 11, and creatinine 0.8. X-ray of the abdomen show dilated loop of small bowel, representing ileus versus partial small bowel obstruction. 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 PLAN: NG tube decompression with serial abdominal x-ray and exam. The patient may benefit from intestinal bypass of point of obstruction. Anam Rincon MD DNIke/MODL /[id number]
--- NOTE | 2019-07-05 21:50 | NUR ---
PATIENT RESTING IN BED BOTH EYES CLOSED IN STABLE CONDITION, NO SIGNS OS DISTRESS NOTED. IV FLUIDS ARE RUNNING AT ORDERED RATE AND PATIENT VOICES NO PAIN AT THIS TIME. NG TUBE IS INTACT AND RUNNING AT LOW CONTINUOUS SUCTION, AND PATIENT VOICES UNDERSTANDING OF NPO DIET. BED IS IN LOWEST POSITION POSSIBLE, BOTH SIDE RAILS ARE UP, CALL LIGHT IS WITHIN EASY REACH, WILL CONTINUE TO MONITOR.
[2019-07-06] VITALS (15 sets, daily range): BP systolic 128–154; BP diastolic 60–100
[2019-07-06] MEDS: AZTREONAM (AZACTAM) 0.5 GM in SODIUM CHLORIDE 0.9% 50ML 50 ML IV SCH ×3 (01:06→17:12)
[2019-07-06] MEDS: SODIUM CHLORIDE 0.9% 250ML IRRIG IR SCH ×6 (02:06→22:30)
[2019-07-06] MEDS: METRONIDAZOLE 500MG/NS 100ML 100 ML IV SCH ×3 (06:22→22:18)
--- NOTE | 2019-07-06 06:29 | NUR ---
IM- progress note O/N no evens ROS: no f/c/s/SHELTON/cp/confusion/focal limb weakness/dizziness/vision changes v/s revd PE tired appearing facial asymmetry ns1s2 mod bs soft; mild tender in mid abdomen no e/t skin dry flat affect a&ox3; garvin labs/med revd A/P: 78yoM SBO Pancreastic adenocarcinoma Diverticulosis Cholelithiasis Right lung nodule GERD HTN FOrmer smoker PLAN Place NGT; IVF; NPO; antiemetics; NGT; Sx consult; GI eval; IV ppi and SCD; 07/04 ambulate; sx eval; check lytes 07/05 check labs 07/06 cont care; check labs; f/u sx plan; Ambulate; optimize lytes Joe Cardona MD, PhD.
[2019-07-06 07:30] LABS: BASOPHILS # (AUTO) 0.1 (0.0-0.1); BASOPHILS % 0.3 % (0.0-1.0); EOSINOPHILS # (AUTO) 0.1 (0.0-0.4); EOSINOPHILS % 0.9 % (0.0-6.0); HEMATOCRIT 34.3 % (38.2-49.6); HEMOGLOBIN 11.3 g/dL (14.0-18.0); LYMPHOCYTES # (AUTO) 1.6 (1.0-3.2); LYMPHOCYTES % 10.5 % (18.0-39.1); MEAN CORPUSCULAR HEMOGLOBIN 30.8 pg (28-32); MEAN CORPUSCULAR HGB CONC 32.9 g/dL (31-35); MEAN CORPUSCULAR VOLUME 93.5 fL (81-99); MONOCYTES # (AUTO) 1.1 (0.2-0.8); NEUTROPHILS # (AUTO) 12.3 (2.1-6.9); NEUTROPHILS % 80.8 % (38.7-80.0); PLATELET COUNT 445 x10e3/uL (140-360); RED BLOOD COUNT 3.67 x10e6/uL (4.3-5.7); RED CELL DISTRIBUTION WIDTH 14.6 % (11.7-14.4)
[2019-07-06 07:45] LABS: ANION GAP 11.9 mmol/L (8-16); BLOOD UREA NITROGEN 19 mg/dL (7-26); BUN/CREATININE RATIO 26 (6-25); CALCIUM 8.1 mg/dL (8.4-10.2); CARBON DIOXIDE 26 mmol/L (22-29); CHLORIDE 102 mmol/L (98-107); CREATININE, SERUM 0.73 mg/dL (0.72-1.25); EST GLOMERULAR FILTRATION RATE > 60 ML/MIN (60-); GLUCOSE 104 mg/dL (74-118); POTASSIUM 3.9 mmol/L (3.5-5.1); SODIUM 136 mmol/L (136-145)
--- NOTE | 2019-07-06 07:50 | NUR ---
PATIENT IS AWAKE, ALERT, AND IN STABLE CONDITION WITH NO S/S OF RESPIRATORY DISTRESS. NO PAIN VOICED. NG TUBE PLACED TO LEFT NARE AND CONNECTED TO LIWS. IV FLUIDS INFUSING. TELEMETRY APPLIED. CALL LIGHT IS WITHIN REACH, PATIENT INSTRUCTED TO CALL FOR ASSISTANCE NEEDED. BED ALARM APPLIED, DAUGHTER PRESENT IN ROOM.
[2019-07-06 08:06] LABS: MAGNESIUM 1.9 MG/DL (1.3-2.1); PHOSPHORUS 3.1 MG/DL (2.3-4.7)
--- NOTE | 2019-07-06 11:53 | Diagnostic Imaging Report ---
Exam: KUB Comparison: July 04, 2019 Clinical history: Small bowel obstruction Findings: The nasogastric tube is unchanged in position. There is no significant interval changes in the proximal small bowel dilation. There is no gross evidence of pneumoperitoneum. The regional osseous structures are unchanged. Signed by: Dr. Jase Vaughan MD on 07/06/2019 11:50 AM
--- NOTE | 2019-07-06 12:29 | NUR ---
Nutrition Intervention Note RD Recommendation(s) for Physician: -ADAT to GI soft per MD. -If diet does not advance after surgery within 72 hours, please consider alternate source of nutrition and consult RD services. Plan of Care: RD following, monitoring for tolerance and adequacy . ONS when diet is advanced. Nutrition reason for involvement: (Possible TPN pt) RD Assessment 07/06: 78 YOM ad mitted for SBO with PMH listed below. The pt was seen resting in bed, NGT in place with daughter at bedside. Spoke about pt in rounds, per nurse he is going for surgery today (intestinal bypass of point of obstruction) and MD may initiate TPN after surgery but was still deciding, please consult RD if decision is made to start TPN. Pt reported he has been eating well at home despite losing weight d/t his chemo. He reported he lost 10-15 lbs in the past 2-3 months. Pt was here in Feb 2019, pt was 170 lbs at that suggesting a 3% weight loss within 3 months which is not significant enough to meet ASPEN malnutrition criteria. He denied chewing or swallowing issues as well as any food allergies. Will continue to monitor. Principal Problems/Diagnoses:SBO PMH: Significant for inoperable advanced pancreatic carcinoma, hypertension, coronary artery disease. GI: Abd: flat, soft, non-tender LBM: 07/05 Skin: no pressure ulcer recorded Labs: 07/06:Na 136, K 3.9, Cl 102, CO2 26, BUN 19, Creat 0.73, Gluc 104, Ca 8.1, Phos 3.1, Mg 1.9, Tbili 0.7 Meds: abx, zofran IVF: D5NS at 50 ml/he (60 gram dex, 204 kcal) Ht:65 in (not 60 inches) Wt: 165 lbs BMI: 27.5 kg/m^2 IBW:136lbs Malnutrition Evaluation (07/06/19) The patient does not meet criteria for a specified degree of malnutrition at this time. Will re-evaluate at follow-up as appropriate. Energy intake: -pt denies poor oral intake Weight loss: . He reported he lost 10-15 lbs in the past 2-3 months. Pt was here in Feb 2018, pt was 170 lbs at that suggesting a 3% weight loss within 3 months which is not significant enough to meet ASPEN malnutrition criteria Fat loss: Mild- dark eyes Muscle loss: Mild-temporal wasting Fluid accumulation: No cyanosis or edema. Functional Status: unable to evaluate Nutrition Prescription (Diet Order):npo Estimated Nutritional Needs: Calories: 1350-1650kcal/day (18-22 kcal/kg/day) Weight used : 75 kg CBW Protein : 75-113protein/day (1-1.5 gram/kg/day ) Weight used: 75 kg CBW Diet Adequacy: Not meeting calorie needs, Not meeting protein needs Diet Education Needs Assessment: Diet education not indicated, patient on temporary/transition diet. Nutrition Care Level: high Nutrition Diagnosis: Inadequate energy intake related to medical condition as evidenced by having NPO diet order and possible need for TPN initiation. Goal: Patient will meet 75-100% of estimated needs by follow up Progress: N/A Interventions: - fiber modified diet, Commercial beverage, Composition, Rate, Route, IVF, Prescription medications, Collaboration with other providers, Monitoring/Evaluation: Total energy intake, Total protein intake, Formula/Solution, IVF, Prescription medication, Modified diet, Liquid supplement, Weight change Signed: Pascale Xiao RD, LD
--- NOTE | 2019-07-06 12:57 | NUR ---
PATIENT OFF THE UNIT TO OR. PATIENT IN STABLE CONDITION WITH NO S/S OF RESPIRATORY DISTRESS. NG TUBE PLACED TO LEFT NARE AND CLAMPED.
[2019-07-06] MEDS ORDERED: HEPARIN SOD/SOD CHLORIDE 1,000 ML ONE (13:24)
[2019-07-06] MEDS ORDERED: FENTANYL CITRATE/PF 100MCG/2 ML INJ ONE ×2 (15:30→18:44)
[2019-07-06] MEDS: MORPHINE SULFATE INJ 4 MG/ML INJ 1ML IV PRN ×2 (16:21→21:08)
[2019-07-06] MEDS: DEXTROSE 5%/0.45% SOD CHL 1,000 ML IV SCH (16:21)
[2019-07-06] MEDS ORDERED: ROCURONIUM BROMIDE 10 MG/ML 5ML VIAL ONE (17:48)
[2019-07-06] MEDS ORDERED: ACETAMINOPHEN 1000 MG/100 ML IV ONE (17:48)
[2019-07-06] MEDS ORDERED: ONDANSETRON HCL INJ 2MG/ML 2ML 2 MG/ML VIAL ONE (17:48)
[2019-07-06] MEDS ORDERED: CEFAZOLIN SOD 1 GM VIAL ONE (17:48)
[2019-07-06] MEDS ORDERED: SUCCINYLCHOLINE CHLORIDE 20 MG/ML 10ML VIAL ONE (17:48)
[2019-07-06] MEDS ORDERED: LIDOCAINE HCL 2% LOCAL INJ 5 ML SDV VIAL INJ ONE (17:48)
[2019-07-06] MEDS ORDERED: PROPOFOL IV EMULSION 10 MG/ML 20 ML VIAL ONE (17:48)
[2019-07-06] MEDS ORDERED: NEOSTIGMINE 1 MG/ML 10ML VIAL ONE (17:48)
[2019-07-06] MEDS ORDERED: SEVOFLURANE INHAL SOLN 250 ML PEN BTL ONE (17:48)
[2019-07-06] MEDS ORDERED: GLYCOPYRROLATE INJ 0.2 MG/ML VIAL ONE (17:48)
--- NOTE | 2019-07-06 22:42 | Operative Report ---
DATE OF PROCEDURE: 07/06/2019 SURGEON: Anam Rincon MD PREOPERATIVE DIAGNOSIS: Intestinal obstruction. POSTOPERATIVE DIAGNOSIS: Carcinomatosis with intestinal obstruction. OPERATIVE PROCEDURES: Exploratory laparotomy and intestinal bypass. ANESTHESIA: General. INDICATIONS: A 78-year-old male with history of metastatic pancreatic cancer with chronic recurrent intestinal obstruction with CT scan show high-grade obstruction in the ileum. The patient consented for exploratory laparotomy and possible intestinal bypass. PROCEDURE FINDINGS: Metastatic pancreatic cancer with intraperitoneal implant with bowel implant causing high-grade obstruction of the ileum. DESCRIPTION OF PROCEDURE: The patient was brought to the OR and intubated. The abdomen was prepped with alcohol and draped in sterile fashion. A low midline incision was made through the linea alba entering the peritoneal cavity. Peritoneal fluid was encountered and approximately 200 mL of peritoneal fluid suctioned out. Exploration revealed significant intraperitoneal implants from metastatic disease with intestinal implant on the ileum causing high-grade obstruction at the lower ileum. We proceeded to perform intestinal bypass using the loops of bowel entering and leaving the site of obstruction. The loops of bowel had placed [id number] and a 2-layer anastomosis was carried out using 3-0 silk Lembert stitches for a seromuscular posterior wall. Enterotomy was made approximately 2 cm from each site and a running 3-0 Vicryl full thickness anastomosis was carried out with 3-0 Vicryl. The anterior Lembert 3-0 silk stitch was placed in the seromuscular layer to reinforce the anastomosis. At the end of the anastomosis, we have adequate lumen. Hemostasis achieved. Operative field was irrigated. Fascia was then closed with a running #0 PDS and #0 Vicryl. Skin was closed with thais. The patient was extubated and transported to recovery room. ESTIMATED BLOOD LOSS: 10 mL. Anam Rincon MD DNL/MODL /[id number]
[2019-07-07] VITALS (22 sets, daily range): BP systolic 130–166; BP diastolic 82–99
[2019-07-07] MEDS: DEXTROSE 5%/0.45% SOD CHL 1,000 ML IV SCH ×4 (00:06→20:30)
[2019-07-07] MEDS: AZTREONAM (AZACTAM) 0.5 GM in SODIUM CHLORIDE 0.9% 50ML 50 ML IV SCH ×3 (01:54→16:18)
[2019-07-07] MEDS: SODIUM CHLORIDE 0.9% 250ML IRRIG IR SCH ×6 (02:30→22:30)
--- NOTE | 2019-07-07 05:30 | NUR ---
PT DUE TO VOID AND UNSUCCESSFUL AFTER SEVERAL ATTEMPTS WITH USING URINAL. BLADDER SCAN REVEALED 650ML, COUDE CATHETER INSERTED PER ORDER, IMMEDIATE OUTPUT 750ML. ASEPTIC TECHNIQUE MAINTAINED, TI MCRAE ASSISTING, PT TOLERATED WELL.
[2019-07-07] MEDS: METRONIDAZOLE 500MG/NS 100ML 100 ML IV SCH ×3 (06:02→21:20)
[2019-07-07] MEDS: MORPHINE SULFATE INJ 4 MG/ML INJ 1ML IV PRN ×4 (06:05→20:35)
--- NOTE | 2019-07-07 06:19 | NUR ---
IM- progress note O/N no evens ROS: no f/c/s/SHELTON/cp/confusion/focal limb weakness/dizziness/vision changes v/s revd PE tired appearing facial asymmetry ns1s2 mod bs soft; mild tender in mid abdomen no e/t skin dry flat affect a&ox3; garvin labs/med revd A/P: 78yoM SBO Pancreastic adenocarcinoma Diverticulosis Cholelithiasis Right lung nodule GERD HTN FOrmer smoker PLAN Place NGT; IVF; NPO; antiemetics; NGT; Sx consult; GI eval; IV ppi and SCD; 07/04 ambulate; sx eval; check lytes 07/05 check labs 07/06 cont care; check labs; f/u sx plan; Ambulate; optimize lytes 07/07 s/p surgery; check labs Joe Cardona MD, PhD.
--- NOTE | 2019-07-07 08:30 | NUR ---
dr reyes making rounds. updated pt and family on current status and poc. recommendations to start an central line for tpn administration. family( 2 daughters) and pt verbalize understanding and consent of procedure. consent signed by pt.
[2019-07-07 08:45] LABS: BASOPHILS % 0.3 % (0.0-1.0); EOSINOPHILS # (AUTO) 0.1 (0.0-0.4); EOSINOPHILS % 0.5 % (0.0-6.0); HEMATOCRIT 35.2 % (38.2-49.6); HEMOGLOBIN 11.2 g/dL (14.0-18.0); LYMPHOCYTES % 6.5 % (18.0-39.1); MEAN CORPUSCULAR HEMOGLOBIN 30.5 pg (28-32); MEAN CORPUSCULAR HGB CONC 31.8 g/dL (31-35); MEAN CORPUSCULAR VOLUME 95.9 fL (81-99); MONOCYTES # (AUTO) 0.8 (0.2-0.8); MONOCYTES % 4.9 % (4.4-11.3); NEUTROPHILS # (AUTO) 13.7 (2.1-6.9); NEUTROPHILS % 87.1 % (38.7-80.0); PLATELET COUNT 350 x10e3/uL (140-360); RED BLOOD COUNT 3.67 x10e6/uL (4.3-5.7); RED CELL DISTRIBUTION WIDTH 14.5 % (11.7-14.4)
--- NOTE | 2019-07-07 08:50 | NUR ---
Patient transferred to a higher level of care. Please send new PT orders if you want patient to resume physical therapy. Addendum: 07/07/19 at 0851 by Zaira Peña PT Amended: Links added.
[2019-07-07 09:04] LABS: ANION GAP 12.6 mmol/L (8-16); BLOOD UREA NITROGEN 14 mg/dL (7-26); BUN/CREATININE RATIO 20 (6-25); CALCIUM 7.6 mg/dL (8.4-10.2); CARBON DIOXIDE 21 mmol/L (22-29); CHLORIDE 103 mmol/L (98-107); CREATININE, SERUM 0.71 mg/dL (0.72-1.25); EST GLOMERULAR FILTRATION RATE > 60 ML/MIN (60-); GLUCOSE 130 mg/dL (74-118); POTASSIUM 3.6 mmol/L (3.5-5.1); SODIUM 133 mmol/L (136-145)
[2019-07-07] MEDS ORDERED: LACTATED RINGER'S 500 ML IV ONE (10:15)
[2019-07-07 10:33] LABS: INR 1.24; PROTHROMBIN TIME 16.4 seconds (11.9-14.5)
[2019-07-07 10:34] LABS: PARTIAL THROMBOPLASTIN TIME 32.3 seconds (23.8-35.5)
--- NOTE | 2019-07-07 12:57 | NUR ---
pt taken to radiology for rt ij placement. tolerates procedure well.
--- NOTE | 2019-07-07 13:26 | Diagnostic Imaging Report ---
Central venous catheter insertion. History: Need for TPN. Modality: Fluoroscopy and sonography. Sedation: None. Quill Cleaning Machine Operator: Aquiles Diehl MD. Cork Tile Floor Layer: None. Approach: Right internal jugular vein Estimated blood loss: < 5 cc. Specimen: None. Fluoroscopy Time: 0.1 min. Reference Air Kerma (Ka, r): 0.9 mGy. Technique: Informed written consent was obtained. Discussion of risks, benefits, and alternatives were made with the patient. The patient expressed understanding and agreed to proceed. A universal timeout was performed prior to starting the procedure. All elements maximal sterile barrier technique was utilized for this procedure, including utilization of sterile scrub solution for skin prep, a large sterile sheet to cover the areas of the patient that were not prepped, and hand hygiene, mask, head covering, and sterile gown for performing radiologist and scrub technologist. The skin was anesthetized with 2% lidocaine. Ultrasound evaluation showed a patent and compressible right internal jugular vein, which was punctured under direct real-time ultrasound guidance with a micropuncture needle. An ultrasound image was saved to PACS. A microwire and sheath were placed. A 0.035 inch wire was placed through the sheath into the IVC. The tract was dilated. The 16 cm 7 Occitan triple-lumen catheter was placed over the wire with its distal tip terminating in the superior right atrium. The ports were flushed and aspirated easily following placement. The catheter was sutured to the skin to secure its placement. Vital signs were monitored throughout the procedure by a nurse, and remained stable. The patient tolerated the procedure well and left the department in the same condition. Results: Spot radiograph of the chest demonstrates the new triple-lumen catheter to lie in the expected position with its tip overlying the right atrium. Impression: Successful, uncomplicated placement of a right internal jugular triple lumen catheter using sonographic and fluoroscopic guidance. The catheter is ready for immediate use. Signed by: Dr. Aquiles Diehl MD on 07/07/2019 1:22 PM
--- NOTE | 2019-07-07 19:33 | NUR ---
NOTIFIED DR AMES OF THE CHANGE IN HEPARIN DOSE, HE IS OK WITH 1200UNIT/DAY, PT STABLE WILL CONTINUE TO MONITOR
[2019-07-07] MEDS ORDERED: CENTRAL TPN FORMULA 1 BAG IV SCH (20:00)
[2019-07-08] VITALS (15 sets, daily range): BP systolic 135–167; BP diastolic 86–104
[2019-07-08] MEDS: AZTREONAM (AZACTAM) 0.5 GM in SODIUM CHLORIDE 0.9% 50ML 50 ML IV SCH ×3 (00:59→17:51)
[2019-07-08] MEDS: SODIUM CHLORIDE 0.9% 250ML IRRIG IR SCH ×6 (02:30→22:30)
[2019-07-08] MEDS: DEXTROSE 5%/0.45% SOD CHL 1,000 ML IV SCH (03:30)
[2019-07-08] MEDS: METRONIDAZOLE 500MG/NS 100ML 100 ML IV SCH ×3 (05:49→21:31)
[2019-07-08] MEDS: MORPHINE SULFATE INJ 4 MG/ML INJ 1ML IV PRN ×3 (06:15→20:11)
--- NOTE | 2019-07-08 06:27 | NUR ---
IM- progress note O/N no evens ROS: no f/c/s/SHELTON/cp/confusion/focal limb weakness/dizziness/vision changes v/s revd PE tired appearing facial asymmetry ns1s2 mod bs soft; mild tender in mid abdomen no e/t skin dry flat affect a&ox3; garvin labs/med revd A/P: 78yoM SBO Pancreastic adenocarcinoma Diverticulosis Cholelithiasis Right lung nodule GERD HTN FOrmer smoker PLAN Place NGT; IVF; NPO; antiemetics; NGT; Sx consult; GI eval; IV ppi and SCD; 07/04 ambulate; sx eval; check lytes 07/05 check labs 07/06 cont care; check labs; f/u sx plan; Ambulate; optimize lytes 07/07 s/p surgery; check labs 07/08 check labs; started on TPN Joe Cardona MD, PhD.
[2019-07-08 06:59] LABS: BASOPHILS # (AUTO) 0.1 (0.0-0.1); BASOPHILS % 0.3 % (0.0-1.0); EOSINOPHILS # (AUTO) 0.2 (0.0-0.4); EOSINOPHILS % 1.5 % (0.0-6.0); HEMATOCRIT 32.5 % (38.2-49.6); HEMOGLOBIN 10.9 g/dL (14.0-18.0); LYMPHOCYTES # (AUTO) 1.1 (1.0-3.2); LYMPHOCYTES % 7.2 % (18.0-39.1); MEAN CORPUSCULAR HEMOGLOBIN 31.2 pg (28-32); MEAN CORPUSCULAR HGB CONC 33.5 g/dL (31-35); MEAN CORPUSCULAR VOLUME 93.1 fL (81-99); MONOCYTES # (AUTO) 1.1 (0.2-0.8); MONOCYTES % 6.8 % (4.4-11.3); NEUTROPHILS # (AUTO) 12.8 (2.1-6.9); NEUTROPHILS % 83.7 % (38.7-80.0); PLATELET COUNT 323 x10e3/uL (140-360); RED BLOOD COUNT 3.49 x10e6/uL (4.3-5.7); RED CELL DISTRIBUTION WIDTH 14.3 % (11.7-14.4)
[2019-07-08 07:21] LABS: ANION GAP 11.5 mmol/L (8-16); BLOOD UREA NITROGEN 6 mg/dL (7-26); BUN/CREATININE RATIO 10 (6-25); CALCIUM 7.6 mg/dL (8.4-10.2); CARBON DIOXIDE 24 mmol/L (22-29); CHLORIDE 98 mmol/L (98-107); CREATININE, SERUM 0.58 mg/dL (0.72-1.25); EST GLOMERULAR FILTRATION RATE > 60 ML/MIN (60-); GLUCOSE 130 mg/dL (74-118); POTASSIUM 3.5 mmol/L (3.5-5.1); SODIUM 130 mmol/L (136-145)
--- NOTE | 2019-07-08 11:45 | NUR ---
PT DISCUSSED IN MDR. CALL TO DR. ALVARENGA FOR DC PLAN FOR THE PT. NO ANSWER; LEFT MESSAGE. PT IS S/P LAP W INTESTINAL BYPASS; IV ABX, IV HYDRATION, TPN, NGT. PT HAS BEEN UP W PT AMBULATED IN THE UNIT. DISCUSSED [facility] VS INPT REHAB.
--- NOTE | 2019-07-08 12:00 | NUR ---
RECEIVED CALL BACK FROM DR. ALVARENGA. STATES HE WILL LEAVE THE DISPO DECISION UP TO SURGERY. CM WILL CONT TO FOLLOW.
[2019-07-08] MEDS ORDERED: POTASSIUM CHLORIDE 20MEQ/100ML 100 ML IV NR (12:15)
--- NOTE | 2019-07-08 13:06 | NUR ---
Nutrition Intervention Note RD Recommendation(s) for Physician: Recommend standard TPN @ goal rate of 75 mL/hr and 25 gm/day lipids (total volume 1800 mL, Dextrose 30% 500 mL (270 g/day), AA 10% 500 mL (90 g/day), 25 gm/day lipids with standard electrolytes, trace elements, and multivitamins) -provides 1503 kcal and 90 g protein -Additional additives per MD Nutrition reason for involvement: follow up, new TPN RD Assessment 07/08: Follow up. Pt continues to have NGT in place and was started on TPN last night. TPN recommendation was provided to RN. Will continue to monitor. 07/06: 78 YOM admitted for SBO with PMH listed below. The pt was seen resting in bed, NGT in place with daughter at bedside. Spoke about pt in rounds, per nurse he is going for surgery today (intestinal bypass of point of obstruction) and MD may initiate TPN after surgery but was still deciding, please consult RD if decision is made to start TPN. Pt reported he has been eating well at home despite losing weight d/t his chemo. He reported he lost 10-15 lbs in the past 2-3 months. Pt was here in Feb 2019, pt was 170 lbs at that suggesting a 3% weight loss within 3 months which is not significant enough to meet ASPEN malnutrition criteria. He denied chewing or swallowing issues as well as any food allergies. Will continue to monitor. Principal Problems/Diagnoses: SBO PMH: Significant for inoperable advanced pancreatic carcinoma, hypertension, coronary artery disease. GI: Abd: soft, tender LBM: 07/05 Skin: no pressure ulcer recorded Labs: 07/08: Na 130, BUN 6, Creat 0.58, Glu 130, Ca 7.6 07/06:Na 136, K 3.9, Cl 102, CO2 26, BUN 19, Creat 0.73, Gluc 104, Ca 8.1, Phos 3.1, Mg 1.9, Tbili 0.7 Meds: aztreonam, metroprolol, zofran, NaCl, morphine, KCl Ht:65 in (not 60 inches) Wt: 165 lbs BMI: 27.5 kg/m^2 IBW: 136lbs Malnutrition Evaluation (07/06/19) The patient does not meet criteria for a specified degree of malnutrition at this time. Will re-evaluate at follow-up as appropriate. Energy intake:-pt denies poor oral intake Weight loss:. He reported he lost 10-15 lbs in the past 2-3 months. Pt was here in Feb 2018, pt was 170 lbs at that suggesting a 3% weight loss within 3 months which is not significant enough to meet ASPEN malnutrition criteria Fat loss: Mild- dark eyes Muscle loss: Mild-temporal wasting Fluid accumulation: No cyanosis or edema. Functional Status: unable to evaluate Nutrition Prescription (Diet Order): Standard TPN @ 50 mL/hr and 25 g/day lipids (total volume 1200 mL, Dextrose 30% 500 mL (180 g/day), AA 10% 500 mL/ (60 g/day), 25 gm/day lipids with standard electrolytes, trace elements, and multivitamins) -provides 1077 kcal and 60 g protein Estimated Nutritional Needs: Calories: 7750-9894 kcal/day (18-22 kcal/kg/day) Weight used : 75 kg CBW Protein : 75-113 g protein/day (1-1.5 gram/kg/day ) Weight used: 75 kg CBW Diet Adequacy: Not meeting calorie needs, Not meeting protein needs Diet Education Needs Assessment: Diet education not indicated, patient on temporary/transition diet. Nutrition Care Level: high Nutrition Diagnosis: Altered GI function related to SBO as evidenced by need for TPN Goal: Patient will meet 75-100% of estimated needs by follow up Progress: progressing Interventions: - TPN - Rate, Route, Collaboration with other providers, Monitoring/Evaluation: Total energy intake, Total protein intake, Formula/Solution, Weight change Signed: Luna Pandey RD, LD
--- NOTE | 2019-07-08 17:59 | NUR ---
Dr Rincon approves use of [employer].
[2019-07-08] MEDS: ENOXAPARIN SOD INJ 40 MG/0.4 ML SYR SC SCH (19:09)
[2019-07-08] MEDS: CENTRAL TPN FORMULA 1 BAG IV SCH (20:12)
[2019-07-09] VITALS (13 sets, daily range): BP systolic 131–160; BP diastolic 84–103
[2019-07-09] MEDS: AZTREONAM (AZACTAM) 0.5 GM in SODIUM CHLORIDE 0.9% 50ML 50 ML IV SCH ×3 (00:36→17:45)
[2019-07-09] MEDS: MORPHINE SULFATE INJ 4 MG/ML INJ 1ML IV PRN ×4 (00:39→21:46)
[2019-07-09] MEDS: SODIUM CHLORIDE 0.9% 250ML IRRIG IR SCH ×2 (02:30→08:02)
[2019-07-09] MEDS: METRONIDAZOLE 500MG/NS 100ML 100 ML IV SCH ×3 (05:59→21:46)
[2019-07-09 07:10] LABS: BASOPHILS # (AUTO) 0.1 (0.0-0.1); BASOPHILS % 0.5 % (0.0-1.0); EOSINOPHILS # (AUTO) 0.4 (0.0-0.4); EOSINOPHILS % 3.1 % (0.0-6.0); HEMATOCRIT 32.9 % (38.2-49.6); HEMOGLOBIN 11.1 g/dL (14.0-18.0); LYMPHOCYTES # (AUTO) 1.4 (1.0-3.2); LYMPHOCYTES % 10.2 % (18.0-39.1); MEAN CORPUSCULAR HEMOGLOBIN 31.1 pg (28-32); MEAN CORPUSCULAR HGB CONC 33.7 g/dL (31-35); MEAN CORPUSCULAR VOLUME 92.2 fL (81-99); MONOCYTES # (AUTO) 1.3 (0.2-0.8); MONOCYTES % 9.6 % (4.4-11.3); NEUTROPHILS # (AUTO) 10.1 (2.1-6.9); NEUTROPHILS % 76.1 % (38.7-80.0); PLATELET COUNT 308 x10e3/uL (140-360); RED BLOOD COUNT 3.57 x10e6/uL (4.3-5.7); RED CELL DISTRIBUTION WIDTH 14.4 % (11.7-14.4)
[2019-07-09 07:29] LABS: ALANINE AMINOTRANSFERASE 9 IU/L (0-55); ALBUMIN 2.1 g/dL (3.5-5.0); ALBUMIN/GLOBULIN RATIO 0.6 (0.8-2.0); ALKALINE PHOSPHATASE 69 IU/L (40-150); ANION GAP 10.8 mmol/L (8-16); BLOOD UREA NITROGEN 9 mg/dL (7-26); BUN/CREATININE RATIO 16 (6-25); CALCIUM 7.9 mg/dL (8.4-10.2); CARBON DIOXIDE 24 mmol/L (22-29); CHLORIDE 97 mmol/L (98-107); CREATININE, SERUM 0.58 mg/dL (0.72-1.25); EST GLOMERULAR FILTRATION RATE > 60 ML/MIN (60-); GLUCOSE 127 mg/dL (74-118); POTASSIUM 3.8 mmol/L (3.5-5.1); SODIUM 128 mmol/L (136-145)
--- NOTE | 2019-07-09 08:13 | NUR ---
IM- progress note O/N no evens ROS: no f/c/s/SHELTON/cp/confusion/focal limb weakness/dizziness/vision changes v/s revd PE tired appearing facial asymmetry ns1s2 mod bs soft; mild tender in mid abdomen no e/t skin dry flat affect a&ox3; garvin labs/med revd A/P: 78yoM SBO Pancreastic adenocarcinoma Diverticulosis Cholelithiasis Right lung nodule GERD HTN FOrmer smoker PLAN Place NGT; IVF; NPO; antiemetics; NGT; Sx consult; GI eval; IV ppi and SCD; 07/04 ambulate; sx eval; check lytes 07/05 check labs 07/06 cont care; check labs; f/u sx plan; Ambulate; optimize lytes 07/07 s/p surgery; check labs 07/08 check labs; started on TPN 07/09 use NS for Hyponatremia; cont care Joe Cardona MD, PhD.
[2019-07-09] MEDS: ONDANSETRON HCL INJ 2MG/ML 2ML 2 MG/ML VIAL IV PRN ×3 (08:17→20:18)
[2019-07-09 08:19] LABS: BILIRUBIN,DIRECT 0.2 mg/dL (0.0-0.5)
[2019-07-09] MEDS: SODIUM CHLORIDE 0.9% 1000ML 1,000 ML IV SCH (08:40)
--- NOTE | 2019-07-09 10:00 | NUR ---
Dr Cardona and Dr Rincon at bedside. Notified of nausea, ngt turned to suction with result of immediate dark gastric secretions in amount of 450cc. Follow up h/h added to noon labs. Will monitor.
[2019-07-09 12:09] LABS: HEMATOCRIT 34.2 % (38.2-49.6); HEMOGLOBIN 11.5 g/dL (14.0-18.0)
[2019-07-09 12:24] LABS: BLOOD UREA NITROGEN 10 mg/dL (7-26); BUN/CREATININE RATIO 16 (6-25); CALCIUM 7.9 mg/dL (8.4-10.2); CARBON DIOXIDE 23 mmol/L (22-29); CHLORIDE 98 mmol/L (98-107); CREATININE, SERUM 0.62 mg/dL (0.72-1.25); EST GLOMERULAR FILTRATION RATE > 60 ML/MIN (60-); GLUCOSE 123 mg/dL (74-118); SODIUM 130 mmol/L (136-145)
--- NOTE | 2019-07-09 13:00 | NUR ---
Dr Rincon and Dr Cardona notified of suspected SIRS. Elevated temp to 99.3, HR 110, RR 24. No new orders currently. Will monitor. Addendum: 07/10/19 at 1628 by Bhargav Ornelas RN The pt remains mildly confused as has been entire shift. He denies abdominal pain, no distention to the abdomen. Pt is only getting 500 on the IS but was achieving 1000 yesterday. Pt has declined PT with reported weakness. Repeat labs unremarkable. Have spoken with Dr Rincon who declined a sirs work up but gave an order to remove the NGT. Co worker Zayra Smith RN spoke with Dr Cardona who declined a SIRS workup.
[2019-07-09] MEDS: PROMETHAZINE 12.5MG/ NACL 0.9% 12.5 MG/50 ML BAG IV PRN (15:50)
--- NOTE | 2019-07-09 17:00 | NUR ---
Dr Cardona notified of temp 101.8, HR 126, RR 24. Orders received including to consult Dr Ike Edwards. Dr Rincon notified.
[2019-07-09] MEDS: METOPROLOL TARTRATE 25 MG TAB PO SCH ×2 (17:45→22:43)
[2019-07-09] MEDS: ENOXAPARIN SOD INJ 40 MG/0.4 ML SYR SC SCH (17:45)
--- NOTE | 2019-07-09 17:57 | Diagnostic Imaging Report ---
Examination: Single AP view of the chest. COMPARISON: None. INDICATION: Decreased breath sounds DISCUSSION: Right internal jugular central venous catheter tip terminates over the expected region of the upper right atrium. Lung volumes are low with perihilar and bibasilar opacities. Small bilateral pleural effusions are suspected. Lung apices are comparatively well aerated. Cardiomediastinal contour and pulmonary vasculature are within normal limits when accounting for AP technique. No acute osseous abnormalities. IMPRESSION: Low lung volumes with vascular crowding or subsegmental atelectasis in the perihilar regions and lung bases. Suspected small bilateral pleural effusions. Signed by: Dr. Anam Motley M.D. on 07/09/2019 5:54 PM
[2019-07-09] MEDS ORDERED: ACETAMINOPHEN 325 MG TAB PO ONE (18:15)
[2019-07-09] MEDS: VANCOMYCIN 1GM/NS 250 ML 250 ML IV SCH (18:15)
[2019-07-09] MEDS ORDERED: SODIUM CHLORIDE 0.9% 1000ML 1,000 ML IV SCH (18:45)
[2019-07-09] MEDS: CENTRAL TPN FORMULA 1 BAG IV SCH (20:18)
--- NOTE | 2019-07-09 21:00 | NUR ---
Pt vomiting dark brown, foul smelling emesis. Call to Dr. Rincon, ordered to put NG tube back in and connect to LIS.
--- NOTE | 2019-07-09 21:50 | Consultation ---
DATE OF CONSULTATION: Pulmonary Critical Care Consultation CHIEF COMPLAINT: Tachycardia and fever. HISTORY OF PRESENT ILLNESS: The patient is a 78-year-old man. He has a history of adenocarcinoma of the pancreas. He was receiving chemotherapy. He also had intestinal implant and known mesenteric mets. He was recently hospitalized at another hospital for small-bowel obstruction. This resolved without surgery. He subsequently came to the hospital again with abdominal pain and cramping. He noted no bowel movements and some vomiting. CT scan of the abdomen and pelvis showed a small bowel obstruction as well as mesenteric metastases and invasion of the primary lesion into the area of the mesenteric vein and superior mesenteric artery. On the , the patient went to the OR and had an intestinal bypass. He tolerated this procedure well. He was on the general medical abbasi receiving total parental nutrition. This afternoon he had some increased pain. He became more tachycardic with a heart rate of 120 to 130 and had a temperature of 101. He was subsequently transferred to the intensive care unit. Repeat blood cultures were drawn as well as a lactic acid. He received some pain medication. PAST SURGICAL HISTORY: 1. Status post appendectomy. 2. Status post recent intestinal bypass as noted above. 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 ALLERGIES: THE PATIENT IS ALLERGIC TO PENICILLIN. SOCIAL HISTORY: The patient is not a drinker or smoker. FAMILY HISTORY: Family history is noncontributory. REVIEW OF SYSTEMS: The patient did have a fever as noted above. He had no headache. He has no neck pain. He is not having any chest pain. He denies any difficulty breathing. He has no cough or phlegm production. He does have some abdominal pain. He is not having any vomiting now. He has no leg edema. PHYSICAL EXAMINATION: VITAL SIGNS: The patient's heart rate is 120. Blood pressure is 148/103 and the saturation is 95% on room air. HEENT: Shows no facial swelling or erythema. There is a right IJ line in good position. The site looks clean. CARDIAC: Reveals regular rate and rhythm with normal S1 and S2. LUNGS: Auscultation of lungs shows decreased breath sounds at the bases. There is no wheezing. ABDOMEN: Soft. There is some mild distention. There is a bandage over the operative site. EXTREMITIES: No leg edema. He has no calf tenderness. There is no cyanosis or clubbing. NEUROLOGICAL: No focal abnormalities. LABORATORY DATA: White blood cell count is 13.3 and hemoglobin is 11.5. The platelet count is 308. Sodium is 130. BUN to creatinine ratio is 10 to 0.62. The other electrolytes within normal limits. PT is 16.4 and the INR is 1.24. RADIOGRAPHIC DATA: Chest x-ray shows poor inspiratory effort with some subsegmental atelectasis. There may be small bilateral pleural effusions. IMPRESSION: 1. Fever on postoperative day two. 2. Metastatic adenocarcinoma of the pancreas. 3. Sinus tachycardia. 4. Hypertension. PLAN: 1. The patient will receive additional fluids. 2. We have added vancomycin to the patient's Azactam and Flagyl. 3. New cultures were obtained and are pending. 4. Lactic acid is pending. 5. Morphine for pain control. 6. Echocardiogram. 7. Case discussed with the patient and nursing staff. Vik Edwards MD [facility]/AIRAM /[id number]
--- NOTE | 2019-07-09 22:20 | Diagnostic Imaging Report ---
EXAM: Abdomen Radiograph 1 View INDICATION: Indeterminate insertion, verify position , history of small bowel obstruction COMPARISON: Chest x-ray 07/09/2019, abdominal radiograph 07/06/2019 FINDINGS: New enteric tube, tip projects in the left upper abdomen. Partially visualized right superior approach central venous catheter, tip in the mid SVC. Bibasilar pulmonary opacities likely atelectasis. Normal volume of stool in the colon. No dilated loops of small bowel. No abnormal abdominal calcifications.. No abnormal soft tissue masses. No pneumoperitoneum. No acute osseous abnormality. Degenerative changes in the spine. IMPRESSION: New enteric tube, tip projects in the left upper abdomen, likely within the gastric lumen. Bibasilar pulmonary opacities likely due to can be due to atelectasis, pleural effusion, and/or pneumonia/aspiration. Signed by: Alfonso Miller DO on 07/09/2019 10:17 PM
[2019-07-10] VITALS (7 sets, daily range): BP systolic 118–136; BP diastolic 76–105
[2019-07-10] MEDS: SODIUM CHLORIDE 0.9% 1000ML 1,000 ML IV SCH (00:19)
[2019-07-10] MEDS: AZTREONAM 1 GM/NS 50 ML 50 ML IV SCH ×3 (00:19→17:38)
--- NOTE | 2019-07-10 03:30 | NUR ---
Pt started complaining of gastric reflux symptoms, pt immediately started projectile vomiting dark brown emesis (~500). NG tube (previously said in correct position per XRAY) advanced output started draining. NG tube stopped draining again, NG tube flushed and 500 mls drained. Xray ordered to confirm placement again. Phenergan given, pt stated he felt a little better. Complete bed bath given with linen change. Central line dressing changed. Pt resting comfortably.
[2019-07-10] MEDS: PROMETHAZINE 12.5MG/ NACL 0.9% 12.5 MG/50 ML BAG IV PRN (04:46)
[2019-07-10] MEDS: METOPROLOL TARTRATE 25 MG TAB PO SCH ×3 (04:55→18:16)
[2019-07-10] MEDS: METRONIDAZOLE 500MG/NS 100ML 100 ML IV SCH ×3 (05:06→21:17)
[2019-07-10 06:40] LABS: BASOPHILS % 0.3 % (0.0-1.0); EOSINOPHILS # (AUTO) 0.1 (0.0-0.4); EOSINOPHILS % 0.6 % (0.0-6.0); HEMATOCRIT 28.6 % (38.2-49.6); HEMOGLOBIN 9.4 g/dL (14.0-18.0); LYMPHOCYTES # (AUTO) 0.7 (1.0-3.2); LYMPHOCYTES % 5.5 % (18.0-39.1); MEAN CORPUSCULAR HEMOGLOBIN 30.8 pg (28-32); MEAN CORPUSCULAR HGB CONC 32.9 g/dL (31-35); MEAN CORPUSCULAR VOLUME 93.8 fL (81-99); MONOCYTES % 7.7 % (4.4-11.3); NEUTROPHILS # (AUTO) 11.3 (2.1-6.9); NEUTROPHILS % 85.4 % (38.7-80.0); PLATELET COUNT 283 x10e3/uL (140-360); RED BLOOD COUNT 3.05 x10e6/uL (4.3-5.7); RED CELL DISTRIBUTION WIDTH 14.7 % (11.7-14.4)
[2019-07-10 07:03] LABS: ALANINE AMINOTRANSFERASE 9 IU/L (0-55); ALBUMIN/GLOBULIN RATIO 0.6 (0.8-2.0); ALKALINE PHOSPHATASE 62 IU/L (40-150); ANION GAP 10.7 mmol/L (8-16); BLOOD UREA NITROGEN 17 mg/dL (7-26); BUN/CREATININE RATIO 29 (6-25); CALCIUM 7.5 mg/dL (8.4-10.2); CARBON DIOXIDE 27 mmol/L (22-29); CHLORIDE 99 mmol/L (98-107); CREATININE, SERUM 0.59 mg/dL (0.72-1.25); EST GLOMERULAR FILTRATION RATE > 60 ML/MIN (60-); GLUCOSE 131 mg/dL (74-118); MAGNESIUM 2.1 MG/DL (1.3-2.1); POTASSIUM 3.7 mmol/L (3.5-5.1); SODIUM 133 mmol/L (136-145)
[2019-07-10 07:20] LABS: PHOSPHORUS 2.2 MG/DL (2.3-4.7)
--- NOTE | 2019-07-10 08:03 | Diagnostic Imaging Report ---
Examination: Single AP view of the chest. COMPARISON: 07/09/2019. INDICATION: Small bowel obstruction. DISCUSSION: Right internal jugular central venous catheter tip terminates over the expected region of the upper right atrium, unchanged. NG tube distal tip projected on the gastric body region. Lung volumes are low with perihilar and bibasilar opacities. Small bilateral pleural effusions are suspected. Bilateral pulmonary venous congestion. The cardiac silhouette is mildly enlarged. No acute osseous abnormalities. IMPRESSION: Bibasilar atelectasis. Bilateral small pleural effusions. Bilateral pulmonary venous congestion. Signed by: Dr. Ramakrishna Ackerman M.D. on 07/10/2019 8:01 AM
--- NOTE | 2019-07-10 08:05 | Diagnostic Imaging Report ---
EXAM: ABDOMEN-1VIEW (KUB), DATE: 07/10/2019 4:55 AM INDICATION: Bowel obstruction. Follow-up. COMPARISON: 07/09/2019 FINDINGS: LINES/TUBES: Partially visualized right superior approach central venous catheter, tip in the mid SVC. N G-tube with distal tip projected on the gastric antrum region. BOWEL PATTERN: Mild gaseous distention of colon and small bowel loops in the upper abdomen. The pelvis was not included. SOFT TISSUES: No abnormal calcifications. No mass effect. LUNG BASES: Bibasilar atelectasis. BONES: No acute findings. IMPRESSION: No interval change in partially visualized bowel gas pattern. Signed by: Dr. Ramakrishna Ackerman M.D. on 07/10/2019 8:03 AM
--- NOTE | 2019-07-10 09:01 | NUR ---
IM- progress note O/N no evens ROS: no f/c/s/SHELTON/cp/confusion/focal limb weakness/dizziness/vision changes v/s revd PE tired appearing facial asymmetry ns1s2 mod bs soft; mild tender in mid abdomen no e/t skin dry flat affect a&ox3; garvin labs/med revd A/P: 78yoM SBO Pancreastic adenocarcinoma Diverticulosis Cholelithiasis Right lung nodule GERD HTN FOrmer smoker PLAN Place NGT; IVF; NPO; antiemetics; NGT; Sx consult; GI eval; IV ppi and SCD; 07/04 ambulate; sx eval; check lytes 07/05 check labs 07/06 cont care; check labs; f/u sx plan; Ambulate; optimize lytes 07/07 s/p surgery; check labs 07/08 check labs; started on TPN 07/09 use NS for Hyponatremia; cont care 07/10 Sepsis- got vanco; fevers resolving; Na improving; cont IVF and broad spec abx; vanco trough pending cct>35mins Joe Cardona MD, PhD.
[2019-07-10] MEDS: FAMOTIDINE 20 MG/2 ML VIAL IV SCH ×2 (10:04→17:38)
--- NOTE | 2019-07-10 11:58 | NUR ---
Gastric drainage is guaiac positive per Jose in lab. Dr Figueroa notified. Nahomi Haider.
[2019-07-10] MEDS: MORPHINE SULFATE INJ 4 MG/ML INJ 1ML IV PRN (13:53)
--- NOTE | 2019-07-10 16:08 | Progress Note ---
DATE: SUBJECTIVE: The patient had some vomiting. He has less abdominal discomfort. He received extra fluid yesterday. PHYSICAL EXAMINATION: VITAL SIGNS: The patient is afebrile. The vital signs are stable. HEENT: Shows no facial swelling or erythema. CARDIAC: Reveals regular rate and rhythm with normal S1, S2. LUNGS: Auscultation of lungs shows clear breath sounds bilaterally. There is no wheezing. ABDOMEN: Soft, nontender. There is no rebound or guarding. EXTREMITIES: Show no leg edema or calf tenderness. IMPRESSION: 1. Small bowel obstruction with intestinal bypass. 2. Metastatic adenocarcinoma of the prostate. 3. Moderate protein-calorie malnutrition. 4. Hypertension. 5. Postoperative fever. PLAN: 1. Continue TPN. 2. Continue IV fluids. 3. Continue NG tube for now until discontinued by Surgery. 4. Await culture results. Taper antibiotics depending on culture results. Vik Edwards MD LM/MODL /[id number]
--- NOTE | 2019-07-10 16:15 | NUR ---
Alyssa Cardona and Sergey notified of the positive guaiac of gastric drainage. Ngt output decreased to 25/ml. OK to start ice and water only, with continued ILWS.
[2019-07-10] MEDS: VANCOMYCIN 1GM/NS 250 ML 250 ML IV SCH (18:17)
[2019-07-10] MEDS: CENTRAL TPN FORMULA 1 BAG IV SCH (21:17)
[2019-07-10] MEDS: MORPHINE SULFATE 2 MG/ML SYR 1ML IV PRN (21:17)
[2019-07-11] VITALS (7 sets, daily range): BP systolic 126–152; BP diastolic 77–86
[2019-07-11] MEDS: SODIUM CHLORIDE 0.9% 1000ML 1,000 ML IV SCH ×2 (00:33→22:32)
[2019-07-11] MEDS: METOPROLOL TARTRATE 25 MG TAB PO SCH ×4 (00:34→17:18)
[2019-07-11] MEDS: AZTREONAM 1 GM/NS 50 ML 50 ML IV SCH ×3 (00:36→16:13)
[2019-07-11] MEDS: METRONIDAZOLE 500MG/NS 100ML 100 ML IV SCH ×3 (05:33→22:32)
[2019-07-11 05:53] LABS: BASOPHILS # (AUTO) 0.1 (0.0-0.1); BASOPHILS % 0.5 % (0.0-1.0); EOSINOPHILS # (AUTO) 0.3 (0.0-0.4); EOSINOPHILS % 2.7 % (0.0-6.0); HEMOGLOBIN 8.7 g/dL (14.0-18.0); LYMPHOCYTES # (AUTO) 1.3 (1.0-3.2); LYMPHOCYTES % 10.3 % (18.0-39.1); MEAN CORPUSCULAR HEMOGLOBIN 31.5 pg (28-32); MEAN CORPUSCULAR HGB CONC 33.5 g/dL (31-35); MEAN CORPUSCULAR VOLUME 94.2 fL (81-99); MONOCYTES # (AUTO) 1.2 (0.2-0.8); MONOCYTES % 10.1 % (4.4-11.3); NEUTROPHILS # (AUTO) 9.2 (2.1-6.9); NEUTROPHILS % 75.9 % (38.7-80.0); PLATELET COUNT 262 x10e3/uL (140-360); RED BLOOD COUNT 2.76 x10e6/uL (4.3-5.7); RED CELL DISTRIBUTION WIDTH 15.3 % (11.7-14.4)
[2019-07-11 06:18] LABS: ALANINE AMINOTRANSFERASE 8 IU/L (0-55); ALBUMIN 1.8 g/dL (3.5-5.0); ALBUMIN/GLOBULIN RATIO 0.6 (0.8-2.0); ALKALINE PHOSPHATASE 62 IU/L (40-150); BLOOD UREA NITROGEN 14 mg/dL (7-26); BUN/CREATININE RATIO 24 (6-25); CALCIUM 7.6 mg/dL (8.4-10.2); CARBON DIOXIDE 26 mmol/L (22-29); CHLORIDE 101 mmol/L (98-107); CREATININE, SERUM 0.59 mg/dL (0.72-1.25); EST GLOMERULAR FILTRATION RATE > 60 ML/MIN (60-); GLUCOSE 115 mg/dL (74-118); SODIUM 133 mmol/L (136-145)
[2019-07-11 06:33] LABS: MAGNESIUM 1.9 MG/DL (1.3-2.1)
--- NOTE | 2019-07-11 06:58 | NUR ---
IM- progress note O/N no evens ROS: no f/c/s/SHELTON/cp/confusion/focal limb weakness/dizziness/vision changes v/s revd PE tired appearing facial asymmetry ns1s2 mod bs soft; mild tender in mid abdomen no e/t skin dry flat affect a&ox3; garvin labs/med revd A/P: 78yoM SBO Pancreastic adenocarcinoma Diverticulosis Cholelithiasis Right lung nodule GERD HTN FOrmer smoker PLAN Place NGT; IVF; NPO; antiemetics; NGT; Sx consult; GI eval; IV ppi and SCD; 07/04 ambulate; sx eval; check lytes 07/05 check labs 07/06 cont care; check labs; f/u sx plan; Ambulate; optimize lytes 07/07 s/p surgery; check labs 07/08 check labs; started on TPN 07/09 use NS for Hyponatremia; cont care 07/10 Sepsis- got vanco; fevers resolving; Na improving; cont IVF and broad spec abx; vanco trough pending cct>35mins 07/11 Afebrile overnight; leukocytosis improving; cont abx; monitor closely; Joe Cardona MD, PhD.
[2019-07-11] MEDS: MORPHINE SULFATE 2 MG/ML SYR 1ML IV PRN ×2 (07:39→19:34)
[2019-07-11] MEDS: FAMOTIDINE 20 MG/2 ML VIAL IV SCH ×2 (08:13→16:13)
[2019-07-11] MEDS: VANCOMYCIN 1GM/NS 250 ML 250 ML IV SCH (17:17)
--- NOTE | 2019-07-11 17:45 | NUR ---
Received patient from ICU. Respiration even and unlabored without SOB. NG tube to left nare attached to low intermittent suction. Caude indwelling urinary catheter intact, in placed with small amount of yellow-colored urine to bag. Family at bedside. Call light in reach.
--- NOTE | 2019-07-11 18:28 | Progress Note ---
DATE: SUBJECTIVE: The patient required some additional medication for pain. He continues to receive TPN. His vital signs are stable. PHYSICAL EXAMINATION: VITAL SIGNS: The blood pressure is 139/77, the pulse is 90, and saturation is 98%. CARDIAC: Reveals regular rate and rhythm with normal S1 and S2. LUNGS: Auscultation of lungs reveals decreased breath sounds at the bases. There is no wheezing. ABDOMEN: Soft and nontender. There is no rebound or guarding. LABORATORY DATA: White blood cell count is 12 and hemoglobin is 8.7. The platelet count is 262. BUN to creatinine ratio is normal. The sodium is 133. Blood sugars 125. IMPRESSION: 1. Small bowel obstruction requiring intestinal bypass. 2. Metastatic adenocarcinoma of the prostrate. 3. Moderate protein-calorie malnutrition. 4. hyponatremia. 5. Hypertension. PLAN: 1. Continue TPN. 2. Continue pain control. 3. Out of bed as tolerated. 4. Transfer out of ICU to the general medical abbasi. Vik Edwards MD [facility]/MODL /[id number]
--- NOTE | 2019-07-11 19:00 | NUR ---
Report given to retail shift manager. respiration even and unlabored without SOB. Call light in reach.
[2019-07-11] MEDS: ONDANSETRON HCL INJ 2MG/ML 2ML 2 MG/ML VIAL IV PRN (19:34)
[2019-07-11] MEDS: CENTRAL TPN FORMULA 1 BAG IV SCH (20:44)
--- NOTE | 2019-07-11 20:45 | NUR ---
PATIENT RESTING IN BED IN STABLE CONDITION, NO SIGNS OF DISTRESS NOTED. NG TUBE IS INTACT AND RUNNING AT LOW INTERMITTENT SUCTION, PATIENT VOICES PAIN AT A LEVEL OF 7 AND MEDICATED ORDERED. TPN AND FLUIDS ARE RUNNING AT ORDERED RATE, BED IS IN LOWEST POSITION, BOTH SIDE RAILS ARE UP, CALL LIGHT IS WITHIN EASY REACH, WILL CONTINUE TO MONITOR.
[2019-07-12] VITALS (8 sets, daily range): BP systolic 141–172; BP diastolic 84–109
[2019-07-12] MEDS: AZTREONAM 1 GM/NS 50 ML 50 ML IV SCH ×3 (00:45→16:12)
[2019-07-12] MEDS: METOPROLOL TARTRATE 25 MG TAB PO SCH ×4 (04:52→17:40)
[2019-07-12] MEDS: METRONIDAZOLE 500MG/NS 100ML 100 ML IV SCH ×3 (05:20→22:38)
[2019-07-12] MEDS: METOPROLOL TARTRATE INJ 1 MG/ML VIAL IV PRN ×3 (05:20→17:41)
--- NOTE | 2019-07-12 06:43 | NUR ---
IM- progress note O/N no evens ROS: no f/c/s/SHELTON/cp/confusion/focal limb weakness/dizziness/vision changes v/s revd PE tired appearing facial asymmetry ns1s2 mod bs soft; mild tender in mid abdomen no e/t skin dry flat affect a&ox3; garvin labs/med revd A/P: 78yoM SBO Pancreastic adenocarcinoma Diverticulosis Cholelithiasis Right lung nodule GERD HTN FOrmer smoker PLAN Place NGT; IVF; NPO; antiemetics; NGT; Sx consult; GI eval; IV ppi and SCD; 07/04 ambulate; sx eval; check lytes 07/05 check labs 07/06 cont care; check labs; f/u sx plan; Ambulate; optimize lytes 07/07 s/p surgery; check labs 07/08 check labs; started on TPN 07/09 use NS for Hyponatremia; cont care 07/10 Sepsis- got vanco; fevers resolving; Na improving; cont IVF and broad spec abx; vanco trough pending cct>35mins 07/11 Afebrile overnight; leukocytosis improving; cont abx; monitor closely; 07/12 check labs; Joe Cardona MD, PhD.
[2019-07-12 07:05] LABS: BASOPHILS # (AUTO) 0.1 (0.0-0.1); BASOPHILS % 0.5 % (0.0-1.0); EOSINOPHILS # (AUTO) 0.3 (0.0-0.4); EOSINOPHILS % 2.6 % (0.0-6.0); HEMATOCRIT 26.4 % (38.2-49.6); HEMOGLOBIN 8.8 g/dL (14.0-18.0); LYMPHOCYTES # (AUTO) 1.3 (1.0-3.2); MEAN CORPUSCULAR HEMOGLOBIN 31.3 pg (28-32); MEAN CORPUSCULAR HGB CONC 33.3 g/dL (31-35); MONOCYTES # (AUTO) 1.1 (0.2-0.8); MONOCYTES % 10.7 % (4.4-11.3); NEUTROPHILS # (AUTO) 7.4 (2.1-6.9); NEUTROPHILS % 72.8 % (38.7-80.0); PLATELET COUNT 258 x10e3/uL (140-360); RED BLOOD COUNT 2.81 x10e6/uL (4.3-5.7); RED CELL DISTRIBUTION WIDTH 15.3 % (11.7-14.4)
[2019-07-12 07:21] LABS: ANION GAP 10.4 mmol/L (8-16); BLOOD UREA NITROGEN 13 mg/dL (7-26); BUN/CREATININE RATIO 21 (6-25); CALCIUM 7.8 mg/dL (8.4-10.2); CARBON DIOXIDE 25 mmol/L (22-29); CHLORIDE 101 mmol/L (98-107); CREATININE, SERUM 0.61 mg/dL (0.72-1.25); EST GLOMERULAR FILTRATION RATE > 60 ML/MIN (60-); GLUCOSE 115 mg/dL (74-118); POTASSIUM 4.4 mmol/L (3.5-5.1); SODIUM 132 mmol/L (136-145)
[2019-07-12] MEDS: FAMOTIDINE 20 MG/2 ML VIAL IV SCH ×2 (08:44→16:12)
--- NOTE | 2019-07-12 15:23 | NUR ---
Nutrition Intervention Note RD Recommendation(s) for Physician: - TPN Rec's: Increase NaCl to 80 mEq/L, continue other components as ordered. - Please check Phos with next lab draw. - When feasible, ADAT to GI Soft. Recommend Ensure Clear TID when diet advanced. Nutrition reason for involvement: follow up, TPN RD Assessment 07/12: Follow up. Pt sleeping at time of visit, no family present. Pt continues on TPN at 75 ml/hr and NGT to LIWS with very little output. Pt discussed during am rounds, possible D/C of NGT today per RN. No GI distress reported and no BM reported. Chart reviewed. TPN and diet rec's provided. Will continue to monitor. 07/08: Follow up. Pt continues to have NGT in place and was started on TPN last night. TPN recommendation was provided to RN. Will continue to monitor. 07/06: 78 YOM admitted for SBO with PMH listed below. The pt was seen resting in bed, NGT in place with daughter at bedside. Spoke about pt in rounds, per nurse he is going for surgery today (intestinal bypass of point of obstruction) and MD may initiate TPN after surgery but was still deciding, please consult RD if decision is made to start TPN. Pt reported he has been eating well at home despite losing weight d/t his chemo. He reported he lost 10-15 lbs in the past 2-3 months. Pt was here in Feb 2019, pt was 170 lbs at that suggesting a 3% weight loss within 3 months which is not significant enough to meet ASPEN malnutrition criteria. He denied chewing or swallowing issues as well as any food allergies. Will continue to monitor. Principal Problems/Diagnoses: SBO PMH: Significant for inoperable advanced pancreatic carcinoma, hypertension, coronary artery disease. GI: Abd: soft, tender LBM: 07/05 + NGT to LIWS- 10 ml output q am shift Skin: no pressure ulcer recorded Labs: 07/12: Na 132, K 4.4, Cl 101, CO2 25, BUN 13, Cr 0.61, Gluc 116, Mg 1.8, POC Gluc 123-125, no Phos 07/08: Na 130, BUN 6, Creat 0.58, Glu 130, Ca 7.6 07/06:Na 136, K 3.9, Cl 102, CO2 26, BUN 19, Creat 0.73, Gluc 104, Ca 8.1, Phos 3.1, Mg 1.9, Tbili 0.7 Meds: pepcid, abx, zofran, morphine Ht:65 in (not 60 inches) Wt: 165 lbs BMI: 27.5 kg/m^2 IBW: 136lbs Malnutrition Evaluation (07/06/19) The patient does not meet criteria for a specified degree of malnutrition at this time. Will re-evaluate at follow-up as appropriate. Energy intake:-pt denies poor oral intake Weight loss:. He reported he lost 10-15 lbs in the past 2-3 months. Pt was here in Feb 2018, pt was 170 lbs at that suggesting a 3% weight loss within 3 months which is not significant enough to meet ASPEN malnutrition criteria Fat loss: Mild- dark eyes Muscle loss: Mild-temporal wasting Fluid accumulation: No cyanosis or edema. Functional Status: unable to evaluate Nutrition Prescription (Diet Order): Standard TPN at 75 mL/hr and 25 g/day lipids (total volume 1200 mL, Dextrose 30% 500 mL (270 g/day), AA 10% 500 mL/ (90 g/day), 25 gm/day lipids with standard electrolytes, trace elements, and multivitamins, thiamine, folic acid, famotidine, and insulin 10 units/day. -provides 1528 kcal and 90 g protein Estimated Nutritional Needs: Calories: 1487-1542 kcal/day (18-22 kcal/kg/day) Weight used : 75 kg CBW Protein : 75-113 g protein/day (1-1.5 gram/kg/day ) Weight used: 75 kg CBW Diet Adequacy: meeting calorie needs, meeting protein needs Diet Education Needs Assessment: Diet education not indicated, patient on temporary/transition diet. Nutrition Care Level: high Nutrition Diagnosis: Altered GI function related to SBO as evidenced by need for TPN Goal: Patient will meet 75-100% of estimated needs by follow up Progress: progressing Interventions: - TPN - Rate, Route, Collaboration with other providers Monitoring/Evaluation: Total energy intake, Total protein intake, Formula/Solution, Weight change Signed: Linda Diop RD, LD, [facility]
[2019-07-12] MEDS: SODIUM CHLORIDE 0.9% 1000ML 1,000 ML IV SCH (16:12)
--- NOTE | 2019-07-12 17:01 | NUR ---
patient slipped out of bed and fell to floor. states no injury. Dr Cardona notified. patient refusing further medical workup.
[2019-07-12] MEDS: VANCOMYCIN 1GM/NS 250 ML 250 ML IV SCH (17:40)
[2019-07-12] MEDS: MORPHINE SULFATE 2 MG/ML SYR 1ML IV PRN (19:41)
[2019-07-12] MEDS: ONDANSETRON HCL INJ 2MG/ML 2ML 2 MG/ML VIAL IV PRN (19:41)
[2019-07-12] MEDS ORDERED: CENTRAL TPN FORMULA 1 BAG IV SCH (20:00)
--- NOTE | 2019-07-12 20:45 | NUR ---
PATIENT RESTING IN BED, COMPLAINS OF NAUSEA AND WAS PREVIOUSLY MEDICATED WITH ZOFRAN AND HAS NOT VOMITED ANYTHING. NASAL CANNULA INTACT AND RUNNING AT LOW INTERMITTENT SUCTION AND PATIENT VOICED PAIN AT A LEVEL OF 4 AND WAS PREVIOUSLY MEDICATED FOR THAT. BED IS IN LOWEST POSITION, BOTH SIDE RAILS ARE UP, BED ALARM IS ON, CALL LIGHT WITHIN REACH WILL CONTINUE TO MONITOR. Addendum: 07/13/19 at 0054 by Ahsutosh Mayo RN NG TUBE NOT NASAL CANNULA
[2019-07-12] MEDS: PROMETHAZINE 12.5MG/ NACL 0.9% 12.5 MG/50 ML BAG IV PRN (20:53)
--- NOTE | 2019-07-12 21:25 | NUR ---
PATIENT HAS RECEIVED PROMETHAZINE FOR NAUSEA AND VOICED THAT HE FELT BETTER. ABDOMINAL DRESSING WAS CHANGED AND IS NOW CLEAN DRY AND INTACT. PATIENT NOW RUNNING FEVER, CALLED DR. ALVARENGA FOR MEDICATION ORDER AWAITING FOR PHARMACY TO CLEAR IT.
[2019-07-12] MEDS ORDERED: ACETAMINOPHEN 1000 MG/100 ML IV PRN (21:45)
--- NOTE | 2019-07-12 22:10 | NUR ---
IV TYLENOL GIVEN TO PATIENT FOR FEVER, CONTINUING TO MONITOR TEMPERATURE.
--- NOTE | 2019-07-12 22:35 | NUR ---
RADIOLOGY HAS COME TO BEDSIDE TO DO PORTABLE X-RAY OF ABDOMEN.
--- NOTE | 2019-07-12 23:06 | Diagnostic Imaging Report ---
Abdomen/KUB INDICATION: Status post abdominal surgery ^sbo ^[id number] ^[id number] COMPARISON: Abdomen x-ray 07/10/2019. FINDINGS: Portable, supine image obtained at 2239 hours. Medical Devices: Enteric tube terminates in the distal stomach. Midline abdominal wall thais have been applied. Bowel: Unremarkable bowel gas pattern. A few air distended small bowel loops measure up to 3 cm. No pneumatosis. No pneumoperitoneum. No large bowel dilatation. Free air: None Abdominal calcifications: None over the renal shadows or along the expected course of the ureters Organomegaly: None Lung bases: Left basilar atelectasis. Small bilateral pleural effusions Bones: Degenerative changes of the spine IMPRESSION: 1. Enteric tube as described above. 2. Mild small bowel ileus. 3. Small bilateral pleural effusions and left basilar atelectasis. Signed by: Dr. Emanuel Jackson MD on 07/12/2019 11:04 PM
[2019-07-13] VITALS (9 sets, daily range): BP systolic 130–153; BP diastolic 72–87
--- NOTE | 2019-07-13 | NUR ---
PATIENT ATTEMPTED TO GET OUT OF BED, VOICED THAT HE HAD TO URINATE, BUT PATIENT HAS COUDE CATHETER IN PLACE. PATIENT WAS PLACED SAFELY BACK IN BED AND REASSESSED, ORIENTED TO PERSON, PLACE, AND TIME. CONTINUING TO MONITOR.
[2019-07-13] MEDS: AZTREONAM 1 GM/NS 50 ML 50 ML IV SCH ×3 (01:08→17:30)
--- NOTE | 2019-07-13 02:00 | NUR ---
PATIENT ATTEMPTED TO GET OUT OF BED AGAIN AND WAS SITTING ON EDGE OF BED, NG TUBE AND COUDE CATHETER IN PLACE. PATIENT WAS PLACED SAFELY BACK IN BED AND REASSESSED, ORIENTED TO PERSON, PLACE. CONTINUING TO MONITOR.
[2019-07-13] MEDS: METOPROLOL TARTRATE 25 MG TAB PO SCH ×4 (05:04→17:12)
[2019-07-13] MEDS: METRONIDAZOLE 500MG/NS 100ML 100 ML IV SCH ×3 (05:22→21:21)
--- NOTE | 2019-07-13 07:23 | NUR ---
IM- progress note O/N no evens ROS: no f/c/s/SHELTON/cp/confusion/focal limb weakness/dizziness/vision changes v/s revd PE tired appearing facial asymmetry ns1s2 mod bs soft; mild tender in mid abdomen no e/t skin dry flat affect a&ox3; garvin labs/med revd A/P: 78yoM SBO Pancreastic adenocarcinoma Diverticulosis Cholelithiasis Right lung nodule GERD HTN FOrmer smoker PLAN Place NGT; IVF; NPO; antiemetics; NGT; Sx consult; GI eval; IV ppi and SCD; 07/04 ambulate; sx eval; check lytes 07/05 check labs 07/06 cont care; check labs; f/u sx plan; Ambulate; optimize lytes 07/07 s/p surgery; check labs 07/08 check labs; started on TPN 07/09 use NS for Hyponatremia; cont care 07/10 Sepsis- got vanco; fevers resolving; Na improving; cont IVF and broad spec abx; vanco trough pending cct>35mins 07/11 Afebrile overnight; leukocytosis improving; cont abx; monitor closely; 07/12 check labs; 07/13 ambulate pt; diet being advanced. Joe Cardona MD, PhD.
[2019-07-13] MEDS: FAMOTIDINE 20 MG/2 ML VIAL IV SCH ×2 (09:00→21:21)
--- NOTE | 2019-07-13 09:50 | NUR ---
PT NGT CLAMPED PER MD ORDER, PT EDUCATED TO CALL IF FEELING BAD, PT VERBALIZED UNDERSTANDING
[2019-07-13] MEDS: SODIUM CHLORIDE 0.9% 1000ML 1,000 ML IV SCH (12:15)
[2019-07-13] MEDS: METOPROLOL TARTRATE INJ 1 MG/ML VIAL IV PRN (13:15)
--- NOTE | 2019-07-13 14:12 | NUR ---
PT COMPLAIN OF STOMACH "UPSET AFTER DRINKING LIQUIDS", NGT RECONNECTED TO SUCTION, PT STATES 'FEELS BETTER", REPOSITIONED, PCT CLEANSED PT , CALL LIGHT WITHIN REACH
--- NOTE | 2019-07-13 17:53 | NUR ---
REPOSITIONED, TPN CONTINUES TO INFUSE, PT TOLERATING AT THIS TIME, CALL LIGHT WITHIN REACH
[2019-07-13] MEDS: VANCOMYCIN 1GM/NS 250 ML 250 ML IV SCH (18:17)
--- NOTE | 2019-07-13 18:53 | NUR ---
RECEIVED BEDSIDE SHIFT REPORT FROM PREVIOUS NURSE. CALL LIGHT WITHIN REACH. PATIENT IN BED. NG TUBE FLOWING WELL
[2019-07-13] MEDS ORDERED: CENTRAL TPN FORMULA 1 BAG IV SCH (20:00)
--- NOTE | 2019-07-13 20:27 | NUR ---
PATIENT CONTINUOUSLY COUGHING AND WANTS SOMETHING FOR HIS COUGH. CALLED AND TALKED TO DR. ALVARENGA AND HE ORDERED ROBITUSSIN DM Q8H
[2019-07-13] MEDS: GUAIFENESIN/DEXTROMETHORPHAN LIQD 5 ML UDC PO PRN (21:38)
[2019-07-14] VITALS (8 sets, daily range): BP systolic 148–162; BP diastolic 77–92
[2019-07-14] MEDS: METOPROLOL TARTRATE 25 MG TAB PO SCH ×6 (00:42→18:00)
[2019-07-14] MEDS: AZTREONAM 1 GM/NS 50 ML 50 ML IV SCH ×3 (00:42→17:00)
--- NOTE | 2019-07-14 01:49 | NUR ---
DID [place] CARE FOR THE PATIENT
[2019-07-14] MEDS: METRONIDAZOLE 500MG/NS 100ML 100 ML IV SCH ×2 (05:42→14:00)
--- NOTE | 2019-07-14 06:52 | NUR ---
IM- progress note O/N no evens ROS: no f/c/s/SHELTON/cp/confusion/focal limb weakness/dizziness/vision changes v/s revd PE tired appearing facial asymmetry ns1s2 mod bs soft; mild tender in mid abdomen no e/t skin dry flat affect a&ox3; garvin labs/med revd A/P: 78yoM SBO Pancreastic adenocarcinoma Diverticulosis Cholelithiasis Right lung nodule GERD HTN FOrmer smoker PLAN Place NGT; IVF; NPO; antiemetics; NGT; Sx consult; GI eval; IV ppi and SCD; 07/04 ambulate; sx eval; check lytes 07/05 check labs 07/06 cont care; check labs; f/u sx plan; Ambulate; optimize lytes 07/07 s/p surgery; check labs 07/08 check labs; started on TPN 07/09 use NS for Hyponatremia; cont care 07/10 Sepsis- got vanco; fevers resolving; Na improving; cont IVF and broad spec abx; vanco trough pending cct>35mins 07/11 Afebrile overnight; leukocytosis improving; cont abx; monitor closely; 07/12 check labs; 07/13 ambulate pt; diet being advanced. 07/14 check labs; cont CLD; ambulate Joe Cardona MD, PhD.
--- NOTE | 2019-07-14 07:10 | NUR ---
GAVE BEDSIDE SHIFT REPORT FROM PREVIOUS NURSE. CALL LIGHT WITHIN REACH. PATIENT IN BED. PATIENT IS A&OX3. Addendum: 07/14/19 at 0711 by Bibi Wood RN GURINDER TUBE DRAINING WELL
[2019-07-14 07:18] LABS: BASOPHILS # (AUTO) 0.1 (0.0-0.1); BASOPHILS % 0.5 % (0.0-1.0); EOSINOPHILS # (AUTO) 0.2 (0.0-0.4); EOSINOPHILS % 1.9 % (0.0-6.0); HEMATOCRIT 26.3 % (38.2-49.6); HEMOGLOBIN 8.6 g/dL (14.0-18.0); LYMPHOCYTES # (AUTO) 1.6 (1.0-3.2); LYMPHOCYTES % 16.4 % (18.0-39.1); MEAN CORPUSCULAR HEMOGLOBIN 30.2 pg (28-32); MEAN CORPUSCULAR HGB CONC 32.7 g/dL (31-35); MEAN CORPUSCULAR VOLUME 92.3 fL (81-99); MONOCYTES # (AUTO) 1.1 (0.2-0.8); MONOCYTES % 11.2 % (4.4-11.3); NEUTROPHILS # (AUTO) 6.7 (2.1-6.9); NEUTROPHILS % 69.6 % (38.7-80.0); PLATELET COUNT 275 x10e3/uL (140-360); RED BLOOD COUNT 2.85 x10e6/uL (4.3-5.7); RED CELL DISTRIBUTION WIDTH 15.4 % (11.7-14.4)
[2019-07-14 07:32] LABS: ANION GAP 8.9 mmol/L (8-16); BLOOD UREA NITROGEN 11 mg/dL (7-26); BUN/CREATININE RATIO 20 (6-25); CALCIUM 7.7 mg/dL (8.4-10.2); CARBON DIOXIDE 24 mmol/L (22-29); CHLORIDE 102 mmol/L (98-107); CREATININE, SERUM 0.55 mg/dL (0.72-1.25); EST GLOMERULAR FILTRATION RATE > 60 ML/MIN (60-); GLUCOSE 132 mg/dL (74-118); POTASSIUM 3.9 mmol/L (3.5-5.1); SODIUM 131 mmol/L (136-145)
--- NOTE | 2019-07-14 07:38 | Diagnostic Imaging Report ---
Examination: Single AP view of the chest. COMPARISON: Portable chest 07/10/2019 INDICATION: Shortness of breath IMPRESSION: 1. Lines and Tubes: Right-sided central line and enteric tube are unchanged. 2. Mildly hypoinflated lungs. Slight worsening of right basilar atelectatic changes. Left basilar atelectatic changes are stable. No consolidation. 3. Cardiomediastinal silhouette is normal. Central pulmonary vascular venous congestion. 4. No acute bony abnormalities. Signed by: Dr. Deep Barrera M.D. on 07/14/2019 7:35 AM
[2019-07-14 07:54] LABS: MAGNESIUM 1.8 MG/DL (1.3-2.1); PHOSPHORUS 3.4 MG/DL (2.3-4.7)
[2019-07-14] MEDS: SODIUM CHLORIDE 0.9% 1000ML 1,000 ML IV SCH (08:15)
[2019-07-14 08:53] LABS: LYMPHOCYTES % (MANUAL) 14 % (19-48); MONOCYTES % (MANUAL) 9 % (3.4-9.0); NEUTROPHILS % (MANUAL) 77 % (40-74)
[2019-07-14] MEDS: FAMOTIDINE 20 MG/2 ML VIAL IV SCH ×2 (10:00→20:05)
[2019-07-14] MEDS: GUAIFENESIN/DEXTROMETHORPHAN LIQD 5 ML UDC PO PRN ×2 (10:20→20:05)
[2019-07-14] MEDS ORDERED: CENTRAL TPN FORMULA 1 BAG IV SCH (12:44)
[2019-07-14] MEDS: VANCOMYCIN 1GM/NS 250 ML 250 ML IV SCH (17:54)
--- NOTE | 2019-07-14 18:57 | NUR ---
RECEIVED BEDSIDE SHIFT REPORT FROM PREVIOUS NURSE. CALL LIGHT WITHIN REACH. PATIENT IN BED. [place] AND NG TUBE DRAINING WELL
[2019-07-14] MEDS: CENTRAL TPN FORMULA 1 BAG IV SCH (20:04)
[2019-07-14] MEDS: ONDANSETRON HCL INJ 2MG/ML 2ML 2 MG/ML VIAL IV PRN (20:05)
[2019-07-15] VITALS (7 sets, daily range): BP systolic 146–167; BP diastolic 87–101
--- NOTE | 2019-07-15 01:00 | NUR ---
[place] CARE DONE FOR THE PATIENT AND BATH WAS GIVEN
[2019-07-15] MEDS: AZTREONAM 1 GM/NS 50 ML 50 ML IV SCH ×3 (02:09→16:13)
[2019-07-15] MEDS: SODIUM CHLORIDE 0.9% 1000ML 1,000 ML IV SCH (04:47)
[2019-07-15] MEDS: METOPROLOL TARTRATE 25 MG TAB PO SCH ×4 (05:46→18:20)
--- NOTE | 2019-07-15 07:02 | NUR ---
Received patient lying in bed with eyes open. Family member at bedside. Indwelling urinary catheter intact, in placed with small amount of yellow-colored urine to bag. Right nare NG tube to low-intermittent suction with about 100 ml dark brown-colored output. Call light in reach.
--- NOTE | 2019-07-15 07:23 | NUR ---
DRESSING CHANGED. GAVE BEDSIDE SHIFT REPORT TO ONCOMING NURSE. CALL LIGHT WITHIN REACH. PATIENT IN BED. DAUGHTER AT THE BEDSIDE.
--- NOTE | 2019-07-15 09:17 | Diagnostic Imaging Report ---
Abdomen, one view on 2 radiographs Clinical indication: Ileus Comparison: 07/12/2019, 07/10/2019 Impression: Enteric tube is in unchanged position. There are mildly prominent loops of small bowel which have decreased in size when compared to prior examination suggesting improving ileus. A small right pleural effusion is present. Bibasilar atelectasis is noted. Signed by: Jose Henley MD on 07/15/2019 9:14 AM
[2019-07-15] MEDS: FAMOTIDINE 20 MG/2 ML VIAL IV SCH ×2 (09:45→21:05)
--- NOTE | 2019-07-15 09:48 | NUR ---
IM- progress note O/N no evens ROS: no f/c/s/SHELTON/cp/confusion/focal limb weakness/dizziness/vision changes v/s revd PE tired appearing facial asymmetry ns1s2 mod bs soft; mild tender in mid abdomen no e/t skin dry flat affect a&ox3; garvin labs/med revd A/P: 78yoM SBO Pancreastic adenocarcinoma Diverticulosis Cholelithiasis Right lung nodule GERD HTN FOrmer smoker PLAN Place NGT; IVF; NPO; antiemetics; NGT; Sx consult; GI eval; IV ppi and SCD; 07/04 ambulate; sx eval; check lytes 07/05 check labs 07/06 cont care; check labs; f/u sx plan; Ambulate; optimize lytes 07/07 s/p surgery; check labs 07/08 check labs; started on TPN 07/09 use NS for Hyponatremia; cont care 07/10 Sepsis- got vanco; fevers resolving; Na improving; cont IVF and broad spec abx; vanco trough pending cct>35mins 07/11 Afebrile overnight; leukocytosis improving; cont abx; monitor closely; 07/12 check labs; 07/13 ambulate pt; diet being advanced. 07/14 check labs; cont CLD; ambulate 07/15 Ileus; cont ambulation; cont diet; check Na Joe Cardona MD, PhD.
[2019-07-15] MEDS: VANCOMYCIN 1GM/NS 250 ML 250 ML IV SCH (18:00)
--- NOTE | 2019-07-15 18:06 | NUR ---
Nutrition Intervention Note RD Recommendation(s) for Physician: - Continue Standard TPN at 75 mL/hr and 25 g/day lipids (total volume 1200 mL, Dextrose 30% 500 mL (270 g/day), AA 10% 500 mL/ (90 g/day), 25 gm/day lipids with standard electrolytes, trace elements, and multivitamins, thiamine, folic acid, famotidine, and insulin 10 units/day. - When medically appropriate advance to to GI Soft. Recommend Ensure Clear TID when diet advanced. Nutrition reason for involvement: follow up, TPN RD Assessment 07/15: Follow up. Pt was discussed during rounds. Pt still has NGT and is receiving TPN. Pt is tolerating clear liquids today per RN and TPN is going to be continued. Will continue to monitor. 07/12: Follow up. Pt sleeping at time of visit, no family present. Pt continues on TPN at 75 ml/hr and NGT to LIWS with very little output. Pt discussed during am rounds, possible D/C of NGT today per RN. No GI distress reported and no BM reported. Chart reviewed. TPN and diet rec's provided. Will continue to monitor. 07/08: Follow up. Pt continues to have NGT in place and was started on TPN last night. TPN recommendation was provided to RN. Will continue to monitor. 07/06: 78 YOM admitted for SBO with PMH listed below. The pt was seen resting in bed, NGT in place with daughter at bedside. Spoke about pt in rounds, per nurse he is going for surgery today (intestinal bypass of point of obstruction) and MD may initiate TPN after surgery but was still deciding, please consult RD if decision is made to start TPN. Pt reported he has been eating well at home despite losing weight d/t his chemo. He reported he lost 10-15 lbs in the past 2-3 months. Pt was here in Feb 2019, pt was 170 lbs at that suggesting a 3% weight loss within 3 months which is not significant enough to meet ASPEN malnutrition criteria. He denied chewing or swallowing issues as well as any food allergies. Will continue to monitor. Principal Problems/Diagnoses: SBO PMH: Significant for inoperable advanced pancreatic carcinoma, hypertension, coronary artery disease. GI: Abd: soft, tender LBM: 07/05 Skin: no pressure ulcer recorded Labs: 07/15: Na 132 2/18: Na 132, K 4.4, Cl 101, CO2 25, BUN 13, Cr 0.61, Gluc 116, Mg 1.8, POC Gluc 123-125, no Phos 07/08: Na 130, BUN 6, Creat 0.58, Glu 130, Ca 7.6 07/06:Na 136, K 3.9, Cl 102, CO2 26, BUN 19, Creat 0.73, Gluc 104, Ca 8.1, Phos 3.1, Mg 1.9, Tbili 0.7 Meds: aztrenoam, metroprolol, pepcid, NaCl, zofran, vancomycin, Ht:65 in (not 60 inches) Wt: 170 lbs (07/13) 165 lbs (07/08) BMI: 32.7 kg/m^2 IBW: 136lbs Malnutrition Evaluation (07/06/19) The patient does not meet criteria for a specified degree of malnutrition at this time. Will re-evaluate at follow-up as appropriate. Energy intake:-pt denies poor oral intake Weight loss:. He reported he lost 10-15 lbs in the past 2-3 months. Pt was here in Feb 2018, pt was 170 lbs at that suggesting a 3% weight loss within 3 months which is not significant enough to meet ASPEN malnutrition criteria Fat loss: Mild- dark eyes Muscle loss: Mild-temporal wasting Fluid accumulation: No cyanosis or edema. Functional Status: unable to evaluate Nutrition Prescription (Diet Order): Standard TPN at 75 mL/hr and 25 g/day lipids (total volume 1200 mL, Dextrose 30% 500 mL (270 g/day), AA 10% 500 mL/ (90 g/day), 25 gm/day lipids with standard electrolytes, trace elements, and multivitamins, thiamine, folic acid, famotidine, and insulin 10 units/day. -provides 1528 kcal and 90 g protein Estimated Nutritional Needs: Calories: 3195-8397 kcal/day (18-22 kcal/kg/day) Weight used : 75 kg Protein : 75-113 g protein/day (1-1.5 gram/kg/day ) Weight used: 75 kg Diet Adequacy: meeting calorie needs, meeting protein needs Diet Education Needs Assessment: Diet education not indicated, patient on temporary/transition diet. Nutrition Care Level: high Nutrition Diagnosis: Altered GI function related to SBO as evidenced by need for TPN Goal: Patient will meet 75-100% of estimated needs by follow up Progress: Current TPN order meet's pt's estimated needs Interventions: - TPN - Rate, Route, Collaboration with other providers Monitoring/Evaluation: Total energy intake, Total protein intake, Formula/Solution, Weight change Signed: Luna Pandey RD, LD
--- NOTE | 2019-07-15 18:55 | NUR ---
Report given to bean dumper. Respiration even and unlabored without SOB. Call light in reach. Right NG tube intact and inpalced. Indwelling nelson catheter intact and in placed. Call light in reach.
[2019-07-15] MEDS: CENTRAL TPN FORMULA 1 BAG IV SCH (20:08)
[2019-07-16] VITALS (9 sets, daily range): BP systolic 143–165; BP diastolic 78–99
[2019-07-16] MEDS: SODIUM CHLORIDE 0.9% 1000ML 1,000 ML IV SCH ×2 (00:15→08:15)
[2019-07-16] MEDS: METOPROLOL TARTRATE 25 MG TAB PO SCH ×4 (00:28→17:36)
[2019-07-16] MEDS: METOPROLOL TARTRATE INJ 1 MG/ML VIAL IV PRN (00:28)
[2019-07-16] MEDS: AZTREONAM 1 GM/NS 50 ML 50 ML IV SCH ×3 (00:32→16:50)
[2019-07-16] MEDS: GUAIFENESIN/DEXTROMETHORPHAN LIQD 5 ML UDC PO PRN ×2 (01:01→13:07)
--- NOTE | 2019-07-16 06:15 | NUR ---
CATHETER CARE DONE WITH HUSSEIN SOAP
[2019-07-16 06:47] LABS: ANION GAP 10.7 mmol/L (8-16); BLOOD UREA NITROGEN 13 mg/dL (7-26); BUN/CREATININE RATIO 23 (6-25); CALCIUM 8.1 mg/dL (8.4-10.2); CARBON DIOXIDE 21 mmol/L (22-29); CHLORIDE 106 mmol/L (98-107); CREATININE, SERUM 0.56 mg/dL (0.72-1.25); EST GLOMERULAR FILTRATION RATE > 60 ML/MIN (60-); GLUCOSE 117 mg/dL (74-118); POTASSIUM 4.7 mmol/L (3.5-5.1); SODIUM 133 mmol/L (136-145)
--- NOTE | 2019-07-16 06:55 | NUR ---
Received patient lying in bed with eyes open. Respiration even and unlabored without SOB. Call light in reach. Family at bedside.
[2019-07-16 07:06] LABS: MAGNESIUM 1.9 MG/DL (1.3-2.1); PHOSPHORUS 3.3 MG/DL (2.3-4.7)
[2019-07-16] MEDS: FAMOTIDINE 20 MG/2 ML VIAL IV SCH ×2 (09:44→21:20)
[2019-07-16] MEDS: VANCOMYCIN 1GM/NS 250 ML 250 ML IV SCH (18:19)
--- NOTE | 2019-07-16 19:05 | NUR ---
Report given to shift superintendent caustic cresylate. Respiration even and unlabored without SOB. Call light in reach.
[2019-07-16] MEDS: CENTRAL TPN FORMULA 1 BAG IV SCH (20:00)
[2019-07-17] VITALS (7 sets, daily range): BP systolic 142–162; BP diastolic 86–96
[2019-07-17] MEDS: GUAIFENESIN/DEXTROMETHORPHAN LIQD 5 ML UDC PO PRN ×2 (00:09→09:28)
[2019-07-17] MEDS: AZTREONAM 1 GM/NS 50 ML 50 ML IV SCH ×3 (01:00→17:00)
--- NOTE | 2019-07-17 04:05 | NUR ---
ASSISTED PATIENT TO BEDSIDE COMMODE AND BACK TO BED. TOLERATED WELL. [place] CATH CARE PROVIDED USING CASTILE SOAP.
[2019-07-17] MEDS: METOPROLOL TARTRATE 25 MG TAB PO SCH ×4 (05:34→18:14)
--- NOTE | 2019-07-17 06:55 | NUR ---
Received patient lying in bed with eyes open. Right nare NG tube intact, in placed attached to low suction. Indwelling urinary catheter in placed, intact with small amount of yellow-colored urine to bag. Call light in reach.
[2019-07-17] MEDS: SODIUM CHLORIDE 0.9% 1000ML 1,000 ML IV SCH (07:40)
[2019-07-17] MEDS: FAMOTIDINE 20 MG/2 ML VIAL IV SCH ×2 (08:59→21:00)
[2019-07-17] MEDS: VANCOMYCIN 1GM/NS 250 ML 250 ML IV SCH (18:13)
--- NOTE | 2019-07-17 19:00 | NUR ---
Report given to patient. Respiration even and unlabored without SOB. Call light in reach.
[2019-07-17] MEDS: CENTRAL TPN FORMULA 1 BAG IV SCH (20:00)
[2019-07-18] VITALS (8 sets, daily range): BP systolic 134–160; BP diastolic 81–92
[2019-07-18] MEDS: GUAIFENESIN/DEXTROMETHORPHAN LIQD 5 ML UDC PO PRN
[2019-07-18] MEDS: AZTREONAM 1 GM/NS 50 ML 50 ML IV SCH ×3 (00:20→16:32)
[2019-07-18] MEDS: METOPROLOL TARTRATE 25 MG TAB PO SCH ×4 (05:19→17:31)
--- NOTE | 2019-07-18 05:19 | NUR ---
HEIDY CARE DONE USING CASTILE SOAP
[2019-07-18] MEDS: ONDANSETRON HCL INJ 2MG/ML 2ML 2 MG/ML VIAL IV PRN (06:45)
[2019-07-18] MEDS: FAMOTIDINE 20 MG/2 ML VIAL IV SCH ×2 (09:00→20:52)
--- NOTE | 2019-07-18 10:11 | NUR ---
IM- progress note O/N no evens ROS: no f/c/s/SHELTON/cp/confusion/focal limb weakness/dizziness/vision changes v/s revd PE tired appearing facial asymmetry ns1s2 mod bs soft; mild tender in mid abdomen no e/t skin dry flat affect a&ox3; garvin labs/med revd A/P: 78yoM SBO Pancreastic adenocarcinoma Diverticulosis Cholelithiasis Right lung nodule GERD HTN FOrmer smoker PLAN Place NGT; IVF; NPO; antiemetics; NGT; Sx consult; GI eval; IV ppi and SCD; 07/04 ambulate; sx eval; check lytes 07/05 check labs 07/06 cont care; check labs; f/u sx plan; Ambulate; optimize lytes 07/07 s/p surgery; check labs 07/08 check labs; started on TPN 07/09 use NS for Hyponatremia; cont care 07/10 Sepsis- got vanco; fevers resolving; Na improving; cont IVF and broad spec abx; vanco trough pending cct>35mins 07/11 Afebrile overnight; leukocytosis improving; cont abx; monitor closely; 07/12 check labs; 07/13 ambulate pt; diet being advanced. 07/14 check labs; cont CLD; ambulate 07/15 Ileus; cont ambulation; cont diet; check Na 07/16 control BP; check lytes; 07/17 supportive care; 07/18 SNF louise Cardona MD, PhD.
[2019-07-18] MEDS: SODIUM CHLORIDE 0.9% 1000ML 1,000 ML IV SCH (12:27)
[2019-07-18] MEDS ORDERED: DIATRIZOATE MEGL/DIATRIZOA SOD 30 ML BTL PO ONE (14:14)
[2019-07-18] MEDS: VANCOMYCIN 1GM/NS 250 ML 250 ML IV SCH (17:31)
--- NOTE | 2019-07-18 19:12 | NUR ---
Received bedside report from day nurse. Patient resting in bed, no s/s of distress or c/o pain at this time. All safety measures in place. Will continue to monitor.
--- NOTE | 2019-07-18 19:24 | NUR ---
Dr. Figueroa here to see patient. Per Dr. Figueroa, continue TPN as ordered.
--- NOTE | 2019-07-18 19:38 | Diagnostic Imaging Report ---
EXAMINATION: CT of the abdomen and pelvis without contrast. TECHNIQUE: Spiral CT images of the abdomen and pelvis were performed from the lung bases to the lesser trochanters. No intravenous contrast was given per physician's request. Oral Gastrografin was given. Coronal and sagittal reformatted images were obtained. COMPARISON: None. CLINICAL HISTORY:Small bowel obstruction DISCUSSION: ABSENCE OF INTRAVENOUS CONTRAST DECREASES SENSITIVITY FOR DETECTION OF FOCAL LESIONS AND VASCULAR PATHOLOGY. ABDOMEN/PELVIS: LOWER THORAX: Moderate right-sided pleural effusion and associated atelectasis of the right lower lobe. Multiple linear opacities in the left lower lobe, likely reflecting subsegmental atelectasis or scarring. Nodular thickening of the major and minor fissures (best seen in sagittal images 76-97). Atherosclerotic calcification of the coronary arteries. Distal portion of Central line noted in the distal SVC. Enteric tube has distal tip in the region of the pylorus. HEPATOBILIARY: No focal hepatic lesions. No intra or extrahepatic biliary ductal dilation. GALLBLADDER: Gallbladder is moderately distended. Multiple 2-3 mm calcified gallstones are noted in the dependent portion of the gallbladder lumen. No wall thickening SPLEEN: No splenomegaly. PANCREAS: No focal masses. Mild pancreatic ductal dilation, which measures approximately 3-4 mm at the pancreatic body. Marked pancreatic atrophy. ADRENALS: No adrenal nodules. KIDNEYS/URETERS: No hydronephrosis, stones, or contour abnormalities. PELVIC ORGANS/BLADDER: Bladder is decompressed and there is a Mackay catheter in place. PERITONEUM/RETROPERITONEUM: Moderate intra-abdominal ascites. LYMPH NODES: No intra-abdominal,retroperitoneal, pelvic or inguinal lymphadenopathy. VESSELS: Atherosclerotic calcification of the abdominal aorta and iliac vessels. GI TRACT: No bowel dilation or evidence of obstruction. Contrast is noted from the stomach to the proximal large bowel. Marked diverticulosis of the distal descending and sigmoid colon, without definite evidence of diverticulitis. BONES AND SOFT TISSUES: No aggressive lytic lesions. Marked multilevel degenerated discs in the lower thoracic and lumbosacral spine, worse at L4-L5 and L5-S1. Generalized soft tissue edema. IMPRESSION: 1. No small or large bowel dilation. Contrast is noted from the stomach to the proximal large bowel, without evidence of obstruction. 2. Marked diverticulosis of the distal descending and sigmoid colon, without diverticulitis. 3. Moderate right-sided pleural effusion and associated atelectasis of the right lower lobe. Moderate ascites and generalized soft tissue edema suggesting fluid overload. 4. Cholelithiasis, without CT evidence of cholecystitis. 5. Nodular thickening of the right major and minor fissures. Recommend CT chest for further evaluation. 6. Mild pancreatic ductal dilation and marked pancreatic atrophy. No definite focal lesion is identified, however, exam is limited bilateral intravenous contrast. Signed by: Dr. Deep Barrera M.D. on 07/18/2019 7:36 PM
[2019-07-18] MEDS: CENTRAL TPN FORMULA 1 BAG IV SCH (20:52)
[2019-07-18 21:34] LABS: BASOPHILS % 0.2 % (0.0-1.0); EOSINOPHILS # (AUTO) 0.1 (0.0-0.4); EOSINOPHILS % 0.6 % (0.0-6.0); HEMOGLOBIN 8.4 g/dL (14.0-18.0); LYMPHOCYTES # (AUTO) 1.2 (1.0-3.2); LYMPHOCYTES % 8.6 % (18.0-39.1); MEAN CORPUSCULAR HEMOGLOBIN 30.9 pg (28-32); MEAN CORPUSCULAR HGB CONC 32.3 g/dL (31-35); MEAN CORPUSCULAR VOLUME 95.6 fL (81-99); MONOCYTES # (AUTO) 0.7 (0.2-0.8); MONOCYTES % 5.2 % (4.4-11.3); NEUTROPHILS # (AUTO) 11.6 (2.1-6.9); NEUTROPHILS % 84.7 % (38.7-80.0); PLATELET COUNT 443 x10e3/uL (140-360); RED BLOOD COUNT 2.72 x10e6/uL (4.3-5.7); RED CELL DISTRIBUTION WIDTH 15.9 % (11.7-14.4)
[2019-07-18 21:55] LABS: ALANINE AMINOTRANSFERASE 19 IU/L (0-55); ALBUMIN/GLOBULIN RATIO 0.5 (0.8-2.0); ALKALINE PHOSPHATASE 252 IU/L (40-150); ANION GAP 9.1 mmol/L (8-16); BLOOD UREA NITROGEN 14 mg/dL (7-26); BUN/CREATININE RATIO 26 (6-25); CALCIUM 7.7 mg/dL (8.4-10.2); CARBON DIOXIDE 24 mmol/L (22-29); CHLORIDE 102 mmol/L (98-107); CREATININE, SERUM 0.54 mg/dL (0.72-1.25); EST GLOMERULAR FILTRATION RATE > 60 ML/MIN (60-); GLUCOSE 124 mg/dL (74-118); POTASSIUM 4.1 mmol/L (3.5-5.1); SODIUM 131 mmol/L (136-145)
[2019-07-18 22:16] LABS: MAGNESIUM 1.8 MG/DL (1.3-2.1)
[2019-07-19] VITALS (8 sets, daily range): BP systolic 145–201; BP diastolic 65–99
[2019-07-19] MEDS: METOPROLOL TARTRATE 25 MG TAB PO SCH ×4 (00:10→17:06)
[2019-07-19] MEDS: AZTREONAM 1 GM/NS 50 ML 50 ML IV SCH ×3 (00:11→17:31)
[2019-07-19] MEDS: GUAIFENESIN/DEXTROMETHORPHAN LIQD 5 ML UDC PO PRN (04:45)
--- NOTE | 2019-07-19 06:23 | NUR ---
IM- progress note O/N no evens ROS: no f/c/s/SHELTON/cp/confusion/focal limb weakness/dizziness/vision changes v/s revd PE tired appearing facial asymmetry ns1s2 mod bs soft; mild tender in mid abdomen no e/t skin dry flat affect a&ox3; garvin labs/med revd A/P: 78yoM SBO Pancreastic adenocarcinoma Diverticulosis Cholelithiasis Right lung nodule GERD HTN FOrmer smoker PLAN Place NGT; IVF; NPO; antiemetics; NGT; Sx consult; GI eval; IV ppi and SCD; 07/04 ambulate; sx eval; check lytes 07/05 check labs 07/06 cont care; check labs; f/u sx plan; Ambulate; optimize lytes 07/07 s/p surgery; check labs 07/08 check labs; started on TPN 07/09 use NS for Hyponatremia; cont care 07/10 Sepsis- got vanco; fevers resolving; Na improving; cont IVF and broad spec abx; vanco trough pending cct>35mins 07/11 Afebrile overnight; leukocytosis improving; cont abx; monitor closely; 07/12 check labs; 07/13 ambulate pt; diet being advanced. 07/14 check labs; cont CLD; ambulate 07/15 Ileus; cont ambulation; cont diet; check Na 07/16 control BP; check lytes; 07/17 supportive care; 07/18 SNF eval - cont care; f/u SNF eval; ambulate; d/w daughter at bedside; Joe Cardona MD, PhD.
--- NOTE | 2019-07-19 06:56 | NUR ---
Bedside report given to day nurse. Patient awake and resting in bed, no s/s of distress or c/o pain at this time. All safety measures in place.
--- NOTE | 2019-07-19 07:26 | NUR ---
Pt received n bed. Ngtube to right nare and connected to low intermittent suction. Pt denies any pain at this time. Pt is aox4 and able to verbalize needs. 0 s/s of acute distress noted.
[2019-07-19] MEDS: ONDANSETRON HCL INJ 2MG/ML 2ML 2 MG/ML VIAL IV PRN ×3 (07:44→20:02)
[2019-07-19] MEDS: FAMOTIDINE 20 MG/2 ML VIAL IV SCH ×2 (07:44→20:02)
--- NOTE | 2019-07-19 08:27 | NUR ---
PT ON TPN, [facility] DOES NOT ACCEPT PT ON TPN, WILL WAIT UNTIL PT IS ON DIET AND OR WEANED.
--- NOTE | 2019-07-19 10:00 | NUR ---
Dr. Figueroa here to see pt and he wants to start weening pt of TPN today. Received orders to decrease rate of TPN from 75ml/hr to 25ml/hr, then TPN is to be discontinued at midnight and then start D5NS 25ml/hr.
[2019-07-19] MEDS: PROMETHAZINE 12.5MG/ NACL 0.9% 12.5 MG/50 ML BAG IV PRN ×2 (11:40→18:34)
[2019-07-19] MEDS: SODIUM CHLORIDE 0.9% 1000ML 1,000 ML IV SCH (11:41)
--- NOTE | 2019-07-19 13:29 | NUR ---
Nutrition Intervention Note RD Recommendation(s) for Physician: - Continue TPN per current order, wean per MD. - When feasible, advance diet to full liquids with goal of GI Soft. - Recommend Ensure Compact when diet advanced. - When medically appropriate advance to to GI Soft. Recommend Ensure Clear TID when diet advanced. Nutrition reason for involvement: follow up, TPN RD Assessment 07/19: Follow up. Pt continues with NGT and on TPN at 25 ml/hr currently, TPN now being weaned and diet advanced to clear liquids per RN. Pt discussed during MDR, plan to remove NGT today and SNF evaluation pending. Chart reviewed. Will continue to monitor. 07/15: Follow up. Pt was discussed during rounds. Pt still has NGT and is receiving TPN. Pt is tolerating clear liquids today per RN and TPN is going to be continued. Will continue to monitor. 07/12: Follow up. Pt sleeping at time of visit, no family present. Pt continues on TPN at 75 ml/hr and NGT to LIWS with very little output. Pt discussed during am rounds, possible D/C of NGT today per RN. No GI distress reported and no BM reported. Chart reviewed. TPN and diet rec's provided. Will continue to monitor. 07/08: Follow up. Pt continues to have NGT in place and was started on TPN last night. TPN recommendation was provided to RN. Will continue to monitor. 07/06: 78 YOM admitted for SBO with PMH listed below. The pt was seen resting in bed, NGT in place with daughter at bedside. Spoke about pt in rounds, per nurse he is going for surgery today (intestinal bypass of point of obstruction) and MD may initiate TPN after surgery but was still deciding, please consult RD if decision is made to start TPN. Pt reported he has been eating well at home despite losing weight d/t his chemo. He reported he lost 10-15 lbs in the past 2-3 months. Pt was here in Feb 2019, pt was 170 lbs at that suggesting a 3% weight loss within 3 months which is not significant enough to meet ASPEN malnutrition criteria. He denied chewing or swallowing issues as well as any food allergies. Will continue to monitor. Principal Problems/Diagnoses: SBO PMH: Significant for inoperable advanced pancreatic carcinoma, hypertension, coronary artery disease. GI: Abd: soft, tender LBM: 2/23 Skin: abdominal incision Labs: 07/18: Na 131, K 4.1, Cl 102, CO2 24, BUN 14, C4r 0.54, Gluc 124, Mg 1.8, Corrected Ca 9.1, POC Gluc 131-133 Meds: abx, pepcid, zofran Ht:65 in (not 60 inches) Wt: 170 lbs (07/13) 165 lbs (07/08) BMI: 32.7 kg/m^2 IBW: 136lbs Malnutrition Evaluation (07/06/19) The patient does not meet criteria for a specified degree of malnutrition at this time. Will re-evaluate at follow-up as appropriate. Energy intake:-pt denies poor oral intake Weight loss:. He reported he lost 10-15 lbs in the past 2-3 months. Pt was here in Feb 2018, pt was 170 lbs at that suggesting a 3% weight loss within 3 months which is not significant enough to meet ASPEN malnutrition criteria Fat loss: Mild- dark eyes Muscle loss: Mild-temporal wasting Fluid accumulation: No cyanosis or edema. Functional Status: unable to evaluate Nutrition Prescription (Diet Order): clear liquids Standard TPN at 75 mL/hr and 25 g/day lipids (total volume 1200 mL, Dextrose 30% 500 mL (270 g/day), AA 10% 500 mL/ (90 g/day), 25 gm/day lipids with standard electrolytes, trace elements, and multivitamins, thiamine, folic acid, famotidine, and insulin 10 units/day. -provides 1528 kcal and 90 g protein Estimated Nutritional Needs: Calories: 3944-2220 kcal/day (18-22 kcal/kg/day) Weight used : 75 kg Protein : 75-113 g protein/day (1-1.5 gram/kg/day ) Weight used: 75 kg Diet Adequacy: meeting calorie needs, meeting protein needs Diet Education Needs Assessment: Diet education not indicated, patient on temporary/transition diet. Nutrition Care Level: high Nutrition Diagnosis: Altered GI function related to SBO as evidenced by need for TPN Goal: Patient will meet 75-100% of estimated needs by follow up Progress: Current TPN order meet's pt's estimated needs Interventions: - TPN - Rate, Route, Collaboration with other providers Monitoring/Evaluation: Total energy intake, Total protein intake, Formula/Solution, Weight change Signed: Linda Diop RD, LD, CNSC
--- NOTE | 2019-07-19 14:30 | NUR ---
Ngtube discontinued at this time per physician orders. Well tolerated by pt. Denies any pain at this time.
--- NOTE | 2019-07-19 19:06 | NUR ---
WALKING ROUNDS PERFORMED, RECEIVED PT LAYING FOWLERS IN BED, AAOX3, RR EVEN AND NON-LABORED, ON ROOM AIR. PT REPORTS THAT HE KEEPS VOMITING, MONITORED PATIENT AND PATIENT COUGHS UP PHLEGM AND SPITS IT INTO A TOWEL AND REPORTS THAT HE IS VOMITING. PROVIDED PT WITH EMESIS BAG TO COLLECT EMESIS. WILL CONTINUE TO MONITOR. LEFT PT LAYING FOWLERS IN BED, BED IN LOW LOCKED POSITION, SIDE RAILS UPX2, CALL LIGHT AND PHONE WITHIN REACH.
[2019-07-19] MEDS ORDERED: CENTRAL TPN FORMULA 1 BAG IV SCH (20:00)
--- NOTE | 2019-07-19 23:50 | NUR ---
CALLED TO PATIENT ROOM BY CALL LIGHT. PT REPORTS VOMITING. PT FOUND SITTING ON SIDE OF BED NOTED TO HAVE LIGHT BROWN EMESIS ON GOWN AND ON FLOOR. CLEANSED PATIENT AND CHANGED LINENS AND GOWN. REPOSITION PT IN BED FOR COMFORT. LEFT PT LAYING SEMI FOWLERS IN BED, BED IN LOW LOCKED POSITION, SIDE RAILS UPX2, CALL LIGHT AND PHONE WITHIN REACH.
[2019-07-20] VITALS (9 sets, daily range): BP systolic 120–169; BP diastolic 58–100
[2019-07-20] MEDS ORDERED: DEXTROSE 5%/0.9% SOD CHL 1,000 ML IV ONE
[2019-07-20] MEDS: PROMETHAZINE 12.5MG/ NACL 0.9% 12.5 MG/50 ML BAG IV PRN ×2 (00:16→07:04)
[2019-07-20] MEDS: METOPROLOL TARTRATE 25 MG TAB PO SCH ×4 (00:19→17:06)
[2019-07-20] MEDS: ONDANSETRON HCL INJ 2MG/ML 2ML 2 MG/ML VIAL IV PRN ×4 (03:50→20:46)
--- NOTE | 2019-07-20 06:15 | NUR ---
IM- progress note O/N no evens ROS: no f/c/s/SHELTON/cp/confusion/focal limb weakness/dizziness/vision changes v/s revd PE tired appearing facial asymmetry ns1s2 mod bs soft; mild tender in mid abdomen no e/t skin dry flat affect a&ox3; garvin labs/med revd A/P: 78yoM SBO Pancreastic adenocarcinoma Diverticulosis Cholelithiasis Right lung nodule GERD HTN FOrmer smoker PLAN Place NGT; IVF; NPO; antiemetics; NGT; Sx consult; GI eval; IV ppi and SCD; 07/04 ambulate; sx eval; check lytes 07/05 check labs 07/06 cont care; check labs; f/u sx plan; Ambulate; optimize lytes 07/07 s/p surgery; check labs 07/08 check labs; started on TPN 07/09 use NS for Hyponatremia; cont care 07/10 Sepsis- got vanco; fevers resolving; Na improving; cont IVF and broad spec abx; vanco trough pending cct>35mins 07/11 Afebrile overnight; leukocytosis improving; cont abx; monitor closely; 07/12 check labs; 07/13 ambulate pt; diet being advanced. 07/14 check labs; cont CLD; ambulate 07/15 Ileus; cont ambulation; cont diet; check Na 07/16 control BP; check lytes; 07/17 supportive care; 07/18 SNF eval - cont care; f/u SNF eval; ambulate; d/w daughter at bedside; 07/20 check labs; NGT out; mobilize; start reglan 5mg IV q8. Joe Cardona MD, PhD.
[2019-07-20 06:50] LABS: BASOPHILS % 0.2 % (0.0-1.0); HEMATOCRIT 26.7 % (38.2-49.6); HEMOGLOBIN 8.6 g/dL (14.0-18.0); LYMPHOCYTES # (AUTO) 0.6 (1.0-3.2); LYMPHOCYTES % 3.9 % (18.0-39.1); MEAN CORPUSCULAR HEMOGLOBIN 30.7 pg (28-32); MEAN CORPUSCULAR HGB CONC 32.2 g/dL (31-35); MEAN CORPUSCULAR VOLUME 95.4 fL (81-99); MONOCYTES # (AUTO) 0.8 (0.2-0.8); MONOCYTES % 5.1 % (4.4-11.3); NEUTROPHILS # (AUTO) 13.5 (2.1-6.9); NEUTROPHILS % 90.1 % (38.7-80.0); PLATELET COUNT 551 x10e3/uL (140-360); RED CELL DISTRIBUTION WIDTH 16.3 % (11.7-14.4)
--- NOTE | 2019-07-20 07:00 | NUR ---
RECEIVED PATIENT AWAKE RESTING IN BED NO S/S OF DISTRESS. BED LOW, WHEELS LOCKED, SIDE RAILS X2. CALL LIGHT IN REACH WILL CONTINUE TO MONITOR PATIENT.
[2019-07-20 07:40] LABS: ANION GAP 12.3 mmol/L (8-16); BLOOD UREA NITROGEN 19 mg/dL (7-26); BUN/CREATININE RATIO 29 (6-25); CALCIUM 8.3 mg/dL (8.4-10.2); CARBON DIOXIDE 28 mmol/L (22-29); CHLORIDE 100 mmol/L (98-107); CREATININE, SERUM 0.65 mg/dL (0.72-1.25); EST GLOMERULAR FILTRATION RATE > 60 ML/MIN (60-); GLUCOSE 111 mg/dL (74-118); POTASSIUM 4.3 mmol/L (3.5-5.1); SODIUM 136 mmol/L (136-145)
[2019-07-20] MEDS: METOCLOPRAMIDE HCL 10 MG/2ML VIAL IV SCH ×3 (08:00→21:53)
[2019-07-20] MEDS: FAMOTIDINE 20 MG/2 ML VIAL IV SCH ×2 (08:00→20:24)
--- NOTE | 2019-07-20 08:53 | NUR ---
PT DAUGHTER SINGED CHOICE FOR COURTYARDS OF BOO FILED IN CHART.
--- NOTE | 2019-07-20 09:45 | NUR ---
DR. TESFAYE ROUNDING ON PATIENT. SPOKE WITH PATIENT AND FAMILY IN REGARDS TO SNF AND HOSPICE CARE.
--- NOTE | 2019-07-20 10:14 | NUR ---
DAUGHTER APPROACHED ME AND WANT TO GET INFORMATION ON HOSPICE. SHE STATE DOCTOR CAME IN AND SPOKE WITH THEM, SHE IS GOING TO SPEAK WITH HER SISTER AND HER DAD THE PT AND SEE IF HE WANTS TO GET SKILLED SERVICES OR GO HOME WITH HOSPICE TO BE COMFORTABLE.
--- NOTE | 2019-07-20 11:47 | Consultation ---
DATE OF CONSULTATION: 07/06/[address] Joe Cardona. HISTORY OF PRESENT ILLNESS: Mr. Grover is a 78-year-old male, who is known to have metastatic cancer of the pancreas. My initial consult I suggested hospice, however, the patient nor the family had accepted hospice. I also had spoken to them that the only drug, which is approved by FDA Gemzar is for palliation. This is not a curative chemotherapy. However, he chose to have Gemzar as the patient had presented with bowel obstruction and subsequently admitted. SOCIAL HISTORY: History of smoking in the past. FAMILY HISTORY: Noncontributory. ALLERGIES: REPORTED TO PENICILLIN. MEDICATIONS: At this time: 1. Metronidazole. 2. Azactam. 3. Dextrose. 4. Sodium chloride. 5. Ondansetron. 6. Morphine. 7. Metoprolol. 8. Promethazine. REVIEW OF SYSTEMS: HEENT: Normal. CARDIAC: Normal. RESPIRATORY: Normal. GI: Metastatic cancer of the pancreas. : Normal. MUSCULOSKELETAL: Normal. SKIN: Normal. BREASTS: Normal. NEUROENDOCRINE: Normal. PHYSICAL EXAMINATION: GENERAL: A marked adult male with nasogastric tube. No palpable adenopathy. HEART: Within normal limits. LUNGS: Clear. ABDOMEN: Obese and distended. RECTAL: Deferred. CENTRAL NERVOUS SYSTEM: Essentially normal. EXTREMITIES: Essentially normal. LABORATORY DATA: Sodium of 136, potassium 3.9, chloride 102, CO2 of 26, BUN 19, creatinine 0.73, hemoglobin 11.3, hematocrit 34.3, white count 15,100, platelets of 445,000. Bilirubin 0.7, SGOT 19, SGPT 39, alkaline phosphatase 96. The CT scan does show the patient to have bowel obstruction. IMPRESSION: 1. Metastatic cancer of the pancreas. 2. Partial bowel obstruction. 3. Leukocytosis. 4. Anemia of chronic disease. PLAN: To have nasogastric tube, consider TPN. I noted the surgical note, the patient basically is a hospice candidate, however, the patient's family is very protective and not accepting hospice. MD ROEL Sultana/AIRAM /[id number]
[2019-07-20] MEDS: METOPROLOL TARTRATE INJ 1 MG/ML VIAL IV PRN ×2 (13:29→17:13)
--- NOTE | 2019-07-20 18:07 | NUR ---
PATIENT LEFT VIA BED TO NUCLEAR MED FOR HIDA SCAN.
--- NOTE | 2019-07-20 18:50 | NUR ---
RECEIVED BEDSIDE SHIFT REPORT FROM PREVIOUS NURSE. PATIENT IS NOT IN THE ROOM BUT IN A PROCEDURE.
--- NOTE | 2019-07-20 20:04 | NUR ---
PATIENT JUST ARRIVED BACK TO THE UNIT IN NO DISTRESS ON THE STRETCHER. CALL LIGHT WITHIN REACH.
--- NOTE | 2019-07-20 20:50 | NUR ---
DRESSING CHANGED ON ABDOMEN AND NOW CLEAN, DRY, AND INTACT.
[2019-07-20] MEDS: GUAIFENESIN/DEXTROMETHORPHAN LIQD 5 ML UDC PO PRN (21:12)
--- NOTE | 2019-07-20 21:47 | Diagnostic Imaging Report ---
Hepatobiliary Scan with Gallbladder Ejection Fraction Clinical information: 78 F with small bowel obstruction and cholecystitis. Vomiting x >1 week. Report: Following intravenous administration of 5.8 millicuries of Tc-99m mebrofenin, dynamic images of the abdomen in the anterior projection were obtained through 60 minutes. Sincalide (CCK analog) 1.6 micrograms was administered intravenously over 30 minutes with additional imaging for determination of gallbladder ejection fraction. Perfusion to the liver is normal. Extraction of tracer from the blood pool by the liver parenchyma is normal. Tracer is seen promptly within the biliary tract. The gallbladder begins to fill by 40 minutes post-injection of tracer. Tracer is seen in the small bowel by 30 minutes. The gallbladder ejection fraction with administration of sincalide is 81% (normal greater than 40%). Impression: 1. Filling of the gallbladder excludes the diagnosis of acute cystic duct obstruction/acute cholecystitis. 2. Normal gallbladder ejection fraction of 81% does not support the clinical diagnosis of chronic cholecystitis/gallbladder dyskinesia. Signed by: Dr. Anahi Benites M.D. on 07/20/2019 9:45 PM
[2019-07-21] MEDS: METOPROLOL TARTRATE 25 MG TAB PO SCH ×4 (01:00→17:54)
[2019-07-21 01:10] VITALS: BP 144/88
[2019-07-21] MEDS: ONDANSETRON HCL INJ 2MG/ML 2ML 2 MG/ML VIAL IV PRN ×3 (04:16→15:36)
[2019-07-21 05:11] VITALS: BP 143/85
[2019-07-21] MEDS: METOCLOPRAMIDE HCL 10 MG/2ML VIAL IV SCH ×2 (05:22→13:06)
[2019-07-21] MEDS: GUAIFENESIN/DEXTROMETHORPHAN LIQD 5 ML UDC PO PRN ×2 (05:23→14:40)
--- NOTE | 2019-07-21 07:11 | NUR ---
GAVE BEDSIDE SHIFT TO ONCOMING NURSE. PATIENT IN BED. CALL LIGHT WITHIN REACH. PATIENT IN NO PAIN OR DISTRESS. PATIENT IS A&OX3
[2019-07-21] MEDS ORDERED: SCOPOLAMINE 1.5 MG PATCH TOP SCH (08:00)
--- NOTE | 2019-07-21 08:00 | NUR ---
RECEIVED PATIENT RESTING IN BED NO S/S OF DISTRESS. BED LOW, WHEELS LOCKED, SIDE RAILS X2. CALL LIGHT IN REACH WILL CONTINUE TO MONITOR PATIENT.
--- NOTE | 2019-07-21 08:04 | NUR ---
IM- progress note O/N see below ROS; no f/c/s/N/V/D/SHELTON/vision changes/confusion/skin rash/focal limb weakness v/s revd PE anicteric ns1s2 mod bs; scattered wheezing soft nt nd 2+ leg edema B/L Scrotal edema 2 plus (nurse present) skin dry flat affect a&ox3; garvin labs/meds revd A/P: UTI- IV abx AECHF- diastolic- diuretics Pulmonary edema- IV diuretics Scrotal edema- iv diuretics Hyponatremia- check labs Hypokalemia- check labs Obesity- hab1c/lipids CAD- hx CABG and stent; cont home meds; BMI 31.8 Prop: lovenox; Dispo: f/u labs; f/u edema 07/20 Hba1/LDL 5.9; check labs; cont care; 07/21 phenergan for nausea, PRN; continue reglan; HIDA shows normal GB EF. Palliative care eval. Joe Cardona MD, PhD.
[2019-07-21] MEDS ORDERED: PROMETHAZINE 12.5MG/ NACL 0.9% 12.5 MG/50 ML BAG IV PRN (08:15)
[2019-07-21 08:16] VITALS: BP 146/83
[2019-07-21 08:22] VITALS: BP 146/83
[2019-07-21] MEDS: FAMOTIDINE 20 MG/2 ML VIAL IV SCH (08:22)
[2019-07-21] MEDS ORDERED: MINERAL OIL 132 ML BTL PR ONE (10:00)
[2019-07-21] MEDS ORDERED: CEPACOL SORE THROAT LOZENGES PO PRN (10:15)
--- NOTE | 2019-07-21 10:25 | NUR ---
PATIENT REFUSED ENEMA.
--- NOTE | 2019-07-21 11:06 | NUR ---
SNF FACILITY DISCHARGE INFORMATION PATIENT HAS BEEN ACCEPTED TO: NAME:VANESSA ADDRESS: [id number] ACCEPTING [employer] WORKER:DANETTE GILLIS MD:LYLE ROOM:[id number] NURSE CALL REPORT TO: [phone] IMM SIGNED AND OBTAINED (if applicable): THE FOLLOWING DOCUMENTS MUST ACCOMPANY PATIENT FOR TRANSFER: COPIED CHART:PACKET
--- NOTE | 2019-07-21 11:15 | NUR ---
REMOVED PATIENTS [place]. [place] TIP INTACT ON REMOVAL, PATIENT DUE TO VOID.
--- NOTE | 2019-07-21 11:20 | NUR ---
SPOKE WITH DR. VIVAR PATIENT OK TO GO TO SNF TODAY.
[2019-07-21 12:34] VITALS: BP 153/81
--- NOTE | 2019-07-21 15:15 | NUR ---
PATIENT VOIDED IN URINAL SMALL AMOUNT AND FAMILY DISCARDED URINE.
[2019-07-21 16:51] VITALS: BP 162/88
--- NOTE | 2019-07-21 17:43 | NUR ---
BLADDER SCANNED PATIENT. 62 ML
--- NOTE | 2019-07-21 18:01 | NUR ---
REPORT CALLED TO NURSE GONZALES AT [facility]. REPORT GIVEN TO NURSE.
--- NOTE | 2019-07-21 18:45 | NUR ---
RECEIVED REPORT FROM PREVIOUS NURSE. CALL LIGHT WITHIN REACH. PATIENT IN BED. AND DAUGHTER AT THE BEDSIDE WAITING TO BE DISCHARGED.
--- NOTE | 2019-07-21 20:20 | NUR ---
PATIENT LEFT VIA STRETCHER TO [facility]. DAUGHTER AND COLLECTED ALL THE BELONGINGS. PATIENT IN NO PAIN OR DISTRESS. REPORT AND DISCHARGE INFORMATION WAS GIVEN TO THE PATIENT FROM THE DAY SHIFT NURSE.
== END 2019-07-21 20:11 | DRG 330 ==
LOC: ER 11:12 → ERHOLD 13:33 → MED/SURG 22:05 → IMCU 07-04 13:31 → OBSVTOIN 07-04 14:29 → ICU 07-06 16:17 → MED/SURG 07-11 17:45
PROVIDERS: ADMIT Internal Medicine; ATTEND Internal Medicine
PROC: 0D1B0ZB Bypass Ileum to Ileum, Open Approach (ICD-10-PCS; principal; 2019-07-06 13:00)
PROC: 02HV33Z Insertion of Infusion Device into Superior Vena Cava, Percutaneous Approach (ICD-10-PCS; 2019-07-07)
DX: C78.6 Secondary malignant neoplasm of retroperitoneum and peritoneum (principal); E44.0 Moderate protein-calorie malnutrition; K56.699 Other intestinal obstruction unspecified as to partial versus complete obstruction; C25.9 Malignant neoplasm of pancreas, unspecified; K57.90 Diverticulosis of intestine, part unspecified, without perforation or abscess without bleeding; K80.20 Calculus of gallbladder without cholecystitis without obstruction; R91.1 Solitary pulmonary nodule; K21.9 Gastro-esophageal reflux disease without esophagitis; I10 Essential (primary) hypertension; Z87.891 Personal history of nicotine dependence; D63.8 Anemia in other chronic diseases classified elsewhere; R50.82 Postprocedural fever
CPT/HCPCS: 36415; 36556; 71045; 74018; 74019; 74176; 74470; 76937; 77001; 78227; 80048; 80053; 80202; 82248; 82550; 82553; 82948; 83605; 83690; 83735; 84100; 84134; 84295; 84478; 84484; 84630; 85014; 85018; 85025; 85610; 85730; 87040; 88112; 88305; 93005; 93306; 96361; 96366; 97139; 99284; A9537; C1751; G0378; J0330; J0690; J1650; J2001; J2270; J2405; J2550; J2710; J2765; J3010; J3370; J3480; J7030; J7042; J7121

== ENCOUNTER 2019-07-22 01:04 | Emergency (ER) | payer MEDICARE ==
[~2019-07-22] VITALS: Ht 153.7 cm; Wt 79.4 kg
--- NOTE | 2019-07-22 02:52 | Diagnostic Imaging Report ---
History: Fall, pain Comparison studies:None Technique: Axial images were obtained from the brain and cervical spine. Coronal and sagittal images reconstructed from the axial data. Intravenous contrast: None Dose modulation, iterative reconstruction, and/or weight based adjustment of the mA/kV was utilized to reduce the radiation dose to as low as reasonably achievable. Findings: Head CT: Scalp/skull: No acute abnormalities. Thinning of the right parietal bone outer table. No fractures, blastic or lytic lesions. Brain sulci: Mildly prominent. Ventricles: Mildly prominent. No hydrocephalus. Extra-axial spaces: No masses. No fluid collections. Parenchyma: Scattered hypodensities in the supratentorial white matter are small vessel ischemic changes. No masses, hemorrhage, acute or chronic cortical vascular insults. Sellar/suprasellar region: No abnormalities. Craniocervical junction: Patent foramen magnum. No Chiari one malformation. Right eye prostheses partially visualized. Cervical spine CT: Fractures: None. Soft tissues: No gross abnormalities. Atlantoaxial articulation: Intact. Alignment: Normal lordosis. No scoliosis. Cervicomedullary junction: No abnormalities. Patent foramen magnum. Vertebrae: No infection or neoplasm. Degenerative changes: Moderate left degenerative foraminal narrowing at C5-6. Disc degeneration with decreased intervertebral space C5-6 and C6-7. Incidental findings: Right IJ central catheter partially visualized. Impression: Head CT: 1. No acute abnormality. 2. Mild generalized volume loss. 3. Moderate supratentorial white matter small vessel ischemic changes. Cervical spine CT: 1. No acute abnormalities. 2. Cannot exclude ligament, spinal cord and or vascular abnormalities on the basis of this examination. Signed by: DR Colby Pantoja M.D. on 07/22/2019 2:50 AM
[2019-07-22] MEDS ORDERED: ONDANSETRON HCL INJ 2MG/ML 2ML 2 MG/ML VIAL IV STA (05:23)
--- NOTE | 2019-07-22 07:36 | NUR ---
pt departed with EMS, EMS given patients discharge paperwork.
== END 2019-07-22 07:37 ==
LOC: ER 01:04
DX: S06.0X0A Concussion without loss of consciousness, initial encounter (principal); W18.30XA Fall on same level, unspecified, initial encounter; Y92.128 Other place in nursing home as the place of occurrence of the external cause; I10 Essential (primary) hypertension; Z85.07 Personal history of malignant neoplasm of pancreas
CPT/HCPCS: 70450; 72125; 99283